=== PATIENT | male | born 1945 | race African-American/Black ===

== ENCOUNTER 2017-07-17 10:42 | Inpatient (IN) | payer MEDICARE, MEDICAID ==
[~2017-07-17] VITALS: Ht 182.9 cm; Wt 98.9 kg
[~2017-07-17 10:42] MED LIST: ASPI-1159 PO; ATOR-2 PO; IBUP-2030 PO; METO100T5 PO
[2017-07-17] MEDS ORDERED: SODIUM CHLORIDE 0.9% 1,000 ML IV ONE (10:48)
[2017-07-17 11:15] LABS: BG BASE EXCESS -0.9 mmol/L (-2.0-2.0); BG CARBOXYHEMOGLOBIN 0.1 % (0.5-1.5); BG DEOXYHEMOGLOBIN 4.7 % (0.0-5.0); BG FRACTION INSPIRED OXYGEN 21; BG HCO3 ACT 23.8 mmol/L (22.0-26.0); BG METHEMOGLOBIN 0.2 % (0.0-1.5); BG OXYGEN SATURATION 95.3 % (92.0-98.5); BG PCO2 39.7 mmHg (35.0-45.0); BG PH 7.396 (7.350-7.450); BG PO2 85.9 mmHg (75.0-100.0); BG SAMPLE SITE RIGHT RADIAL; BG TOTAL HEMOGLOBIN 9.1 g/dL (12.0-18.0); BG VENT MODE ROOM AIR
[2017-07-17 11:17] LABS: BASOPHILS % 0.5 % (0.0-2.0); EOSINOPHILS % 4.2 % (0.0-5.0); HEMATOCRIT. 24.3 % (42.0-52.0); HEMOGLOBIN. 8.1 g/dL (14.0-18.0); MEAN CORPUSCULAR HEMOGLOBIN 30.7 pg (28.0-32.0); MEAN CORPUSCULAR VOLUME 91.7 fL (80.0-94.0); MEAN PLATELET VOLUME 7.4 fl (7.4-10.4); MONOCYTES % 8.3 % (2.0-8.0); PLATELET 134 x1000/uL (130-400); RED BLOOD CELL COUNT 2.65 mill/uL (4.7-6.1); RED CELL DISTRIBUTION WIDTH 14.6 % (11.6-14.6)
[2017-07-17] MEDS ORDERED: LOSA50TA20 PO (11:25)
[2017-07-17 11:26] LABS: CLARITY URINE CLEAR (CLEAR); COLOR URINE YELLOW (YELLOW); GLUCOSE URINE NEGATIVE (NEGATIVE); KETONES URINE NEGATIVE (NEGATIVE); LEUKOCYTE ESTERASE URINE NEGATIVE (NEGATIVE); NITRITE URINE NEGATIVE (NEGATIVE); OCCULT BLOOD URINE 2+ (NEGATIVE); PH URINE 5.5 (4.5-8.0); PROTEIN URINE NEGATIVE (NEGATIVE); SPECIFIC GRAVITY URINE 1.013 (1.005-1.030); UROBILINOGEN URINE 0.2 E.U./dL (0.2-1.0)
[2017-07-17] MEDS ORDERED: CEFTRIAXONE 1 G PREMIX 50 ML IV ONE (11:30)
[2017-07-17 11:36] LABS: CARBON DIOXIDE 27 mEq/L (21-32); CHLORIDE 111 mEq/L (98-107); PARTIAL THROMBOPLASTIN TIME 24.5 sec (23.4-31.0); PROTHROMBIN TIME 10.4 sec (9.4-11.6); TROPONIN I < 0.02 ng/mL (0.00-0.04)
[2017-07-17 11:39] LABS: ETHANOL BLOOD < 10 mg/dL
[2017-07-17 11:40] LABS: *AMPHETAMINES SCREEN URINE NEGATIVE (NEGATIVE); *BARBITURATES SCREEN URINE NEGATIVE (NEGATIVE); *BENZODIAZEPINES SCREEN URINE NEGATIVE (NEGATIVE); *COCAINE SCREEN URINE NEGATIVE (NEGATIVE); CANNABINOID URINE SCREEN NEGATIVE (NEGATIVE); OPIATES URINE SCREEN NEGATIVE (NEGATIVE); PHENCYCLIDINE URINE SCREEN NEGATIVE (NEGATIVE)
[2017-07-17 11:47] LABS: METHADONE URINE SCREEN NEGATIVE (NEGATIVE)
[2017-07-17 17:09] VITALS: BP 163/65
[2017-07-17 17:30] VITALS: BP 163/65
[2017-07-17] MEDS ORDERED: GUAIFENESIN 200MG/10ML SUGAR FREE UDC PO PRN (18:45)
[2017-07-17] MEDS ORDERED: IBUPROFEN 800MG TABLET PO PRN (18:45)
[2017-07-17] MEDS ORDERED: ONDANSETRON HCL 4MG/2ML VIAL IV PRN (18:45)
[2017-07-17] MEDS ORDERED: CLONIDINE 0.1MG TABLET PO PRN (18:45)
[2017-07-17] MEDS ORDERED: DIPHENHYDRAMINE 50MG/ML VIAL IV PRN (18:45)
[2017-07-17] MEDS ORDERED: ACETAMINOPHEN 325MG TABLET PO PRN (18:45)
[2017-07-17] MEDS ORDERED: MAGNESIUM/ALUMINUM HYDROXIDE/SIMETHICONE 30ML UDC PO PRN (18:45)
[2017-07-17 20:00] VITALS: BP 148/60
[2017-07-17] MEDS: SODIUM CHLORIDE 0.9% INJ 3ML FLUSH IVF SCH (21:10)
[2017-07-17] MEDS: ATORVASTATIN CALCIUM 40MG TABLET PO SCH (21:10)
[2017-07-17] MEDS: IPRATROPIUM/ALBUTEROL 0.5-3(2.5)MG/3ML NEB HHN SCH (22:19)
[2017-07-17] MEDS: NEOMYCIN-POLYMYXIN B-HYDROCORTISONE 1% OTIC SOLN 10ML EACH EAR SCH (23:18)
[2017-07-17] MEDS: DEXT 5%/0.45% NACL 1000ML 1,000 ML IV SCH (23:19)
[2017-07-18] VITALS: BP 158/62
[2017-07-18] MEDS: IPRATROPIUM/ALBUTEROL 0.5-3(2.5)MG/3ML NEB HHN SCH ×2 (03:34→09:43)
[2017-07-18 04:00] VITALS: BP 168/67
[2017-07-18] MEDS: NEOMYCIN-POLYMYXIN B-HYDROCORTISONE 1% OTIC SOLN 10ML EACH EAR SCH ×3 (05:07→18:26)
[2017-07-18] MEDS: SODIUM CHLORIDE 0.9% INJ 3ML FLUSH IVF SCH ×3 (05:07→21:02)
[2017-07-18 07:35] VITALS: BP 155/64
[2017-07-18] MEDS: ASPIRIN 81MG EC TABLET PO SCH (08:44)
[2017-07-18] MEDS: LOSARTAN POTASSIUM 50 MG TABLET PO SCH (08:44)
[2017-07-18] MEDS: METOPROLOL TARTRATE 100MG TABLET PO SCH ×2 (08:45→21:02)
[2017-07-18] MEDS: DEXT 5%/0.45% NACL 1000ML 1,000 ML IV SCH (09:52)
[2017-07-18 12:04] VITALS: BP 146/65
[2017-07-18] MEDS ORDERED: IPRATROPIUM/ALBUTEROL 0.5-3(2.5)MG/3ML NEB HHN PRN (13:45)
[2017-07-18 16:00] VITALS: BP 148/70
[2017-07-18 20:00] VITALS: BP 156/63
[2017-07-18] MEDS: ATORVASTATIN CALCIUM 40MG TABLET PO SCH (21:01)
[2017-07-19] VITALS: BP 168/55
[2017-07-19] MEDS: NEOMYCIN-POLYMYXIN B-HYDROCORTISONE 1% OTIC SOLN 10ML EACH EAR SCH ×3 (01:20→12:29)
[2017-07-19] MEDS: DEXT 5%/0.45% NACL 1000ML 1,000 ML IV SCH ×2 (03:26→14:35)
[2017-07-19 04:00] VITALS: BP 158/64
[2017-07-19] MEDS: SODIUM CHLORIDE 0.9% INJ 3ML FLUSH IVF SCH ×2 (06:46→14:35)
[2017-07-19 08:26] VITALS: BP 168/62
[2017-07-19] MEDS: ASPIRIN 81MG EC TABLET PO SCH (08:37)
[2017-07-19] MEDS: LOSARTAN POTASSIUM 50 MG TABLET PO SCH (08:38)
[2017-07-19] MEDS: METOPROLOL TARTRATE 100MG TABLET PO SCH (08:39)
[2017-07-19 12:30] VITALS: BP 138/63
[2017-07-19 16:37] VITALS: BP 136/44
== END 2017-07-19 18:00 | disposition home health service (06) | DRG 682 ==
LOC: ER 11:09 → 5WST 12:26 → EDBEDREQ 12:31 → ENRESERV 15:17
PROVIDERS: ADMIT Internal Medicine; ATTEND Internal Medicine
DX: N17.9 Acute kidney failure, unspecified (principal); G92 Toxic encephalopathy; E46 Unspecified protein-calorie malnutrition; E87.8 Other disorders of electrolyte and fluid balance, not elsewhere classified; G90.8 Other disorders of autonomic nervous system; D64.9 Anemia, unspecified; H60.90 Unspecified otitis externa, unspecified ear; E78.00 Pure hypercholesterolemia, unspecified; E86.0 Dehydration; H54.0 Blindness, both eyes; H91.90 Unspecified hearing loss, unspecified ear; I12.9 Hypertensive chronic kidney disease with stage 1 through stage 4 chronic kidney disease, or unspecified chronic kidney disease; N18.9 Chronic kidney disease, unspecified; Z68.29 Body mass index [BMI] 29.0-29.9, adult; Z79.82 Long term (current) use of aspirin; Z79.899 Other long term (current) drug therapy
CPT/HCPCS: 36415; 36600; 51702; 70450; 71010; 80048; 80053; 80305; 81001; 82375; 82805; 82962; 83605; 83690; 83735; 83880; 84484; 85025; 85610; 85730; 87040; 87070; 87086; 93005; 94640; 96361; 96365; 99285; G0482; J0696; J3490; J7030; J7620; A4315

== ENCOUNTER 2017-08-08 10:26 | Inpatient (IN) | payer MEDICARE, MEDICAID ==
[~2017-08-08] VITALS: Ht 188 cm; Wt 98.0 kg
[~2017-08-08 10:26] MED LIST changes: +LOSA50TA20 PO
[2017-08-08] MEDS ORDERED: ASPIRIN 81MG TABLET PO ONE (10:45)
[2017-08-08] MEDS ORDERED: NITROGLYCERIN 0.4MG TABLET SL SL PRN (10:45)
[2017-08-08] MEDS ORDERED: FERR220S12 PO (11:06)
[2017-08-08] MEDS ORDERED: DOCU-150 PO (11:07)
[2017-08-08] MEDS ORDERED: PANT40TA4 PO (11:08)
[2017-08-08] MEDS ORDERED: CLOP75TA15 PO (11:08)
[2017-08-08 11:19] LABS: BASOPHILS % 0.4 % (0.0-2.0); EOSINOPHILS % 3.5 % (0.0-5.0); HEMATOCRIT. 24.6 % (42.0-52.0); HEMOGLOBIN. 8.3 g/dL (14.0-18.0); LYMPHOCYTES % 24.4 % (20.0-50.0); MEAN CORPUSCULAR HEMOGLOBIN 30.8 pg (28.0-32.0); MEAN PLATELET VOLUME 7.5 fl (7.4-10.4); NEUTROPHILS % 65.7 % (40.0-76.0); PLATELET 118 x1000/uL (130-400); RED BLOOD CELL COUNT 2.71 mill/uL (4.7-6.1); RED CELL DISTRIBUTION WIDTH 14.7 % (11.6-14.6)
[2017-08-08 11:25] LABS: PROTHROMBIN TIME 10.4 sec (9.4-11.6)
[2017-08-08 11:27] LABS: CHLORIDE 111 mEq/L (98-107)
[2017-08-08 11:34] LABS: CARBON DIOXIDE 28 mEq/L (21-32)
[2017-08-08 11:36] LABS: TROPONIN I < 0.02 ng/mL (0.00-0.04)
[2017-08-08] MEDS ORDERED: SODIUM CHLORIDE 0.9% 1,000 ML IV ONE (12:15)
[2017-08-08] MEDS ORDERED: SODIUM CHLORIDE 0.9% 1,000 ML IV SCH (12:35)
[2017-08-08] MEDS ORDERED: ONDANSETRON HCL 4MG/2ML VIAL IV PRN (16:30)
[2017-08-08] MEDS ORDERED: GUAIFENESIN 200MG/10ML SUGAR FREE UDC PO PRN (16:30)
[2017-08-08] MEDS ORDERED: HYDROCODONE/ACETAMINOPHEN 5/325MG TABLET PO PRN (16:30)
[2017-08-08] MEDS ORDERED: MAGNESIUM/ALUMINUM HYDROXIDE/SIMETHICONE 30ML UDC PO PRN (16:30)
[2017-08-08] MEDS ORDERED: MORPHINE SULFATE 4 MG/ML CPJ (NOT FOR IM USE) IV PRN (16:30)
[2017-08-08 16:51] VITALS: BP 147/67
[2017-08-08 17:00] VITALS: BP 147/67
[2017-08-08] MEDS: ENOXAPARIN 40MG/0.4ML SYR SUBCUT SCH (17:32)
[2017-08-08 20:00] VITALS: BP 159/65
[2017-08-08 23:20] LABS: CREATINE KINASE 110 IU/L (39-308); CREATINE KINASE MB FRACTION 1.2 ng/mL (0.5-3.6); TROPONIN I < 0.02 ng/mL (0.00-0.04)
[2017-08-09] VITALS (10 sets, daily range): BP systolic 114–181; BP diastolic 49–76
[2017-08-09] MEDS: CLONIDINE 0.1MG TABLET PO PRN (01:19)
[2017-08-09] MEDS: ACETAMINOPHEN 325MG TABLET PO PRN (01:22)
[2017-08-09 06:14] LABS: BASOPHILS % 0.4 % (0.0-2.0); EOSINOPHILS % 3.8 % (0.0-5.0); HEMATOCRIT. 21.9 % (42.0-52.0); HEMOGLOBIN. 7.3 g/dL (14.0-18.0); MEAN CORPUSCULAR HEMOGLOBIN 30.5 pg (28.0-32.0); MEAN CORPUSCULAR VOLUME 91.5 fL (80.0-94.0); MONOCYTES % 7.7 % (2.0-8.0); NEUTROPHILS % 57.1 % (40.0-76.0); PLATELET 108 x1000/uL (130-400); RED CELL DISTRIBUTION WIDTH 14.6 % (11.6-14.6)
[2017-08-09 07:13] LABS: CARBON DIOXIDE 28 mEq/L (21-32); CHLORIDE 110 mEq/L (98-107); HDL CHOLESTEROL 49 mg/dL (40-59); LDL CHOLESTEROL 78 mg/dL (5-100); T4 FREE 0.93 ng/dL (0.76-1.46)
[2017-08-09 07:28] LABS: CREATINE KINASE 103 IU/L (39-308)
[2017-08-09 07:29] LABS: CREATINE KINASE MB FRACTION 1.3 ng/mL (0.5-3.6); TROPONIN I < 0.02 ng/mL (0.00-0.04)
[2017-08-09] MEDS: ASPIRIN 81MG EC TABLET PO SCH (09:18)
[2017-08-09] MEDS ORDERED: CLONIDINE 0.1MG TABLET PO PRN (11:30)
[2017-08-09] MEDS ORDERED: ENOXAPARIN 40MG/0.4ML SYR SUBCUT SCH (11:30)
[2017-08-09] MEDS ORDERED: HYDROCODONE/ACETAMINOPHEN 5/325MG TABLET PO PRN (11:30)
[2017-08-09] MEDS ORDERED: ACETAMINOPHEN 325MG TABLET PO PRN (11:30)
[2017-08-09] MEDS ORDERED: DIPHENHYDRAMINE 50MG/ML VIAL IV PRN (11:30)
[2017-08-09] MEDS ORDERED: DOCUSATE SODIUM 100MG CAPSULE PO PRN (11:30)
[2017-08-09] MEDS ORDERED: MORPHINE SULFATE 2 MG/ML CPJ (NOT FOR IM USE) IV PRN (11:30)
[2017-08-09] MEDS ORDERED: ONDANSETRON HCL 4MG/2ML VIAL IV PRN (11:30)
[2017-08-09] MEDS ORDERED: GUAIFENESIN 200MG/10ML SUGAR FREE UDC PO PRN (11:30)
[2017-08-09 15:32] LABS: TOTAL IRON BINDING CAPACITY 271 ug/dL (250-450)
[2017-08-09 16:03] LABS: FOLIC ACID (FOLATE) SERUM 12.4 ng/mL (>5.38)
[2017-08-09] MEDS: PANTOPRAZOLE SODIUM 40 MG/VIAL IV SCH (16:53)
[2017-08-09] MEDS: ENOXAPARIN 40MG/0.4ML SYR SUBCUT SCH (16:54)
[2017-08-09] MEDS: SENNOSIDES/DOCUSATE SOD 8.6/50MG TABLET PO SCH (16:54)
[2017-08-09 17:22] LABS: CREATINE KINASE 116 IU/L (39-308); CREATINE KINASE MB FRACTION 1.2 ng/mL (0.5-3.6); HDL CHOLESTEROL 56 mg/dL (40-59); LDL CHOLESTEROL 86 mg/dL (5-100); T4 FREE 0.97 ng/dL (0.76-1.46); TROPONIN I < 0.02 ng/mL (0.00-0.04)
[2017-08-09 19:33] LABS: T4 FREE 0.92 ng/dL (0.76-1.46)
[2017-08-10] VITALS (9 sets, daily range): BP systolic 122–175; BP diastolic 56–72
[2017-08-10 01:37] LABS: CREATINE KINASE 107 IU/L (39-308); CREATINE KINASE MB FRACTION 0.8 ng/mL (0.5-3.6); TROPONIN I < 0.02 ng/mL (0.00-0.04)
[2017-08-10 06:48] LABS: BASOPHILS % 0.4 % (0.0-2.0); EOSINOPHILS % 3.5 % (0.0-5.0); HEMATOCRIT. 27.8 % (42.0-52.0); HEMOGLOBIN. 9.3 g/dL (14.0-18.0); LYMPHOCYTES % 25.6 % (20.0-50.0); MEAN CORPUSCULAR HEMOGLOBIN 30.1 pg (28.0-32.0); MEAN CORPUSCULAR VOLUME 89.7 fL (80.0-94.0); MONOCYTES % 6.1 % (2.0-8.0); NEUTROPHILS % 64.4 % (40.0-76.0); PLATELET 115 x1000/uL (130-400); RED CELL DISTRIBUTION WIDTH 14.6 % (11.6-14.6)
[2017-08-10 06:49] LABS: PARTIAL THROMBOPLASTIN TIME 25.7 sec (23.4-31.0); PROTHROMBIN TIME 10.6 sec (9.4-11.6)
[2017-08-10 08:11] LABS: CARBON DIOXIDE 28 mEq/L (21-32); CHLORIDE 106 mEq/L (98-107)
[2017-08-10] MEDS ORDERED: ASPIRIN 81MG EC TABLET PO SCH (09:00)
[2017-08-10] MEDS: ASPIRIN 81MG EC TABLET PO SCH (10:48)
[2017-08-10] MEDS: DOCUSATE SODIUM 100MG CAPSULE PO PRN (10:48)
[2017-08-10] MEDS: PANTOPRAZOLE SODIUM 40 MG/VIAL IV SCH ×2 (10:49→17:14)
[2017-08-10] MEDS: SENNOSIDES/DOCUSATE SOD 8.6/50MG TABLET PO SCH (10:50)
[2017-08-10] MEDS: SODIUM CHLORIDE 0.9% 1,000 ML IV SCH (16:00)
[2017-08-10] MEDS: ENOXAPARIN 40MG/0.4ML SYR SUBCUT SCH (17:10)
[2017-08-11] VITALS (7 sets, daily range): BP systolic 120–177; BP diastolic 42–76
[2017-08-11] MEDS: CLONIDINE 0.1MG TABLET PO PRN (00:18)
[2017-08-11] MEDS: SODIUM CHLORIDE 0.9% 1,000 ML IV SCH ×2 (00:18→16:36)
[2017-08-11] MEDS: SENNOSIDES/DOCUSATE SOD 8.6/50MG TABLET PO SCH (10:09)
[2017-08-11] MEDS: ASPIRIN 81MG EC TABLET PO SCH (10:09)
[2017-08-11] MEDS: PANTOPRAZOLE SODIUM 40 MG/VIAL IV SCH ×2 (10:17→17:09)
[2017-08-11] MEDS: ACETAMINOPHEN 325MG TABLET PO PRN (14:50)
[2017-08-11] MEDS ORDERED: SODIUM CHLORIDE 0.9% 10ML VIAL ONE (15:14)
[2017-08-11] MEDS ORDERED: IOHEXOL-350 100 ML BOTTLE ONE (15:14)
[2017-08-11] MEDS: ENOXAPARIN 40MG/0.4ML SYR SUBCUT SCH (17:00)
[2017-08-12] VITALS (7 sets, daily range): BP systolic 127–166; BP diastolic 55–70
[2017-08-12] MEDS: CLONIDINE 0.1MG TABLET PO PRN (06:06)
[2017-08-12] MEDS: DOCUSATE SODIUM 100MG CAPSULE PO PRN ×2 (08:46→08:49)
[2017-08-12] MEDS: ASPIRIN 81MG EC TABLET PO SCH (08:46)
[2017-08-12] MEDS: PANTOPRAZOLE SODIUM 40 MG/VIAL IV SCH ×2 (08:46→17:20)
[2017-08-12] MEDS: SODIUM CHLORIDE 0.9% 1,000 ML IV SCH (08:48)
[2017-08-12] MEDS: SENNOSIDES/DOCUSATE SOD 8.6/50MG TABLET PO SCH (09:05)
[2017-08-12] MEDS: ENOXAPARIN 40MG/0.4ML SYR SUBCUT SCH (17:21)
[2017-08-12] MEDS ORDERED: DIATR MEGLU/DIATRIZOATE SOLN 30ML PO NR (22:00)
[2017-08-13] VITALS (7 sets, daily range): BP systolic 111–170; BP diastolic 53–74
[2017-08-13] MEDS ORDERED: DIATR MEGLU/DIATRIZOATE SOLN 30ML PO NR (06:00)
[2017-08-13] MEDS: PANTOPRAZOLE SODIUM 40 MG/VIAL IV SCH ×2 (09:11→18:13)
[2017-08-13] MEDS: ASPIRIN 81MG EC TABLET PO SCH (09:12)
[2017-08-13] MEDS: SENNOSIDES/DOCUSATE SOD 8.6/50MG TABLET PO SCH (09:12)
[2017-08-13] MEDS ORDERED: SODIUM CHLORIDE 0.9% 10ML VIAL ONE (11:41)
[2017-08-13] MEDS ORDERED: IOHEXOL-300 100 ML BOTTLE ONE (11:41)
[2017-08-13 16:34] LABS: BASOPHILS % 0.4 % (0.0-2.0); EOSINOPHILS % 3.5 % (0.0-5.0); HEMATOCRIT. 26.7 % (42.0-52.0); HEMOGLOBIN. 9.2 g/dL (14.0-18.0); LYMPHOCYTES % 27.6 % (20.0-50.0); MEAN CORPUSCULAR HEMOGLOBIN 30.9 pg (28.0-32.0); MEAN CORPUSCULAR VOLUME 90.3 fL (80.0-94.0); MEAN PLATELET VOLUME 8.3 fl (7.4-10.4); MONOCYTES % 8.3 % (2.0-8.0); NEUTROPHILS % 60.2 % (40.0-76.0); PLATELET 123 x1000/uL (130-400); RED BLOOD CELL COUNT 2.96 mill/uL (4.7-6.1); RED CELL DISTRIBUTION WIDTH 14.4 % (11.6-14.6)
[2017-08-13 16:36] LABS: PROTHROMBIN TIME 10.8 sec (9.4-11.6)
[2017-08-13] MEDS: ENOXAPARIN 40MG/0.4ML SYR SUBCUT SCH (17:00)
[2017-08-13] MEDS ORDERED: SORBITOL 70% SOLN 30ML PO NR (21:15)
[2017-08-14 00:03] VITALS: BP 127/63
[2017-08-14 04:00] VITALS: BP 116/61
[2017-08-14] MEDS ORDERED: SORBITOL 70% SOLN 30ML PO NR (06:00)
[2017-08-14 07:27] VITALS: BP 144/68
[2017-08-14] MEDS: SENNOSIDES/DOCUSATE SOD 8.6/50MG TABLET PO SCH (08:38)
[2017-08-14] MEDS: ASPIRIN 81MG EC TABLET PO SCH (08:38)
[2017-08-14] MEDS: PANTOPRAZOLE SODIUM 40 MG/VIAL IV SCH (08:58)
[2017-08-14 11:20] VITALS: BP 140/57
== END 2017-08-14 13:05 | disposition home health service (06) | DRG 291 ==
LOC: ER 10:42 → 7WST 12:39 → ENRESERV 13:23
PROVIDERS: ADMIT Hospitalist; ATTEND Hospitalist
PROC: 30233N1 Transfusion of Nonautologous Red Blood Cells into Peripheral Vein, Percutaneous Approach (ICD-10-PCS; principal; 2017-08-10)
PROC: 02HV33Z Insertion of Infusion Device into Superior Vena Cava, Percutaneous Approach (ICD-10-PCS; 2017-08-11)
PROC: B5181ZA Fluoroscopy of Superior Vena Cava using Low Osmolar Contrast, Guidance (ICD-10-PCS; 2017-08-11)
DX: I13.0 Hypertensive heart and chronic kidney disease with heart failure and stage 1 through stage 4 chronic kidney disease, or unspecified chronic kidney disease (principal); I50.31 Acute diastolic (congestive) heart failure; N17.9 Acute kidney failure, unspecified; D61.818 Other pancytopenia; K92.1 Melena; E44.1 Mild protein-calorie malnutrition; N18.9 Chronic kidney disease, unspecified; E78.5 Hyperlipidemia, unspecified; H91.90 Unspecified hearing loss, unspecified ear; H91.8X3 Other specified hearing loss, bilateral; I71.4 Abdominal aortic aneurysm, without rupture; I25.2 Old myocardial infarction; Z87.11 Personal history of peptic ulcer disease; Z79.899 Other long term (current) drug therapy; Z68.27 Body mass index [BMI] 27.0-27.9, adult
CPT/HCPCS: 36415; 36569; 71010; 71275; 74177; 76937; 77001; 80053; 80061; 82550; 82553; 82607; 82728; 82746; 82962; 83036; 83540; 83550; 83880; 84439; 84443; 84484; 85025; 85379; 85610; 85730; 86850; 86870; 86900; 86920; 93005; 93306; 93970; 96360; 99285; A4216; C1725; C9113; J1650; J7030; J7050; P9016; Q9963; Q9967

== ENCOUNTER 2018-10-27 10:56 | Inpatient (IN) | payer MEDICARE, MEDICAID ==
[~2018-10-27] VITALS: Ht 182.9 cm; Wt 90.7 kg
[~2018-10-27 10:56] MED LIST changes: +FAMO20TA8 PO; +FERR325T6 PO; -IBUP-2030 PO; +LISI-186 PO; -METO100T5 PO; +METO25TA6 PO; +OLAN5TAB26 PO; +PANT40TA4 PO; +SERT25TA74 PO
[2018-10-27] MEDS ORDERED: SODIUM CHLORIDE 0.9% 1,000 ML IV ONE (11:31)
[2018-10-27 13:08] LABS: BASOPHILS % 0.2 % (0.0-2.0); EOSINOPHILS % 2.2 % (0.0-5.0); HEMATOCRIT. 28.8 % (42.0-52.0); HEMOGLOBIN. 9.2 g/dL (14.0-18.0); LYMPHOCYTES % 26.2 % (20.0-50.0); MEAN CORPUSCULAR HEMOGLOBIN 29.7 pg (28.0-32.0); MEAN CORPUSCULAR VOLUME 92.7 fL (80.0-94.0); MEAN PLATELET VOLUME 9.2 fl (7.4-10.4); MONOCYTES % 7.2 % (2.0-8.0); NEUTROPHILS % 64.2 % (40.0-76.0); PLATELET 140 x1000/uL (130-400); RED BLOOD CELL COUNT 3.11 mill/uL (4.7-6.1); RED CELL DISTRIBUTION WIDTH 15.2 % (11.6-14.6)
[2018-10-27 13:20] LABS: CHLORIDE 116 mEq/L (98-107)
[2018-10-27] MEDS ORDERED: LIDOCAINE HCL 1% 20ML VIAL (Pyxis) INJ ONE (13:39)
[2018-10-27] MEDS ORDERED: SODIUM BICARBONATE 4% (2.4MEQ) 5ML VIAL IV ONE (13:39)
[2018-10-27] MEDS ORDERED: ACETAMINOPHEN 325MG TABLET PO PRN (17:30)
[2018-10-27] MEDS ORDERED: ONDANSETRON HCL 4MG/2ML INJ IV PRN (17:30)
[2018-10-27] MEDS ORDERED: SODIUM CHLORIDE 0.45% 1,000 ML IV SCH (17:30)
[2018-10-27] MEDS ORDERED: CLONIDINE 0.1MG TABLET PO PRN (17:30)
[2018-10-27] MEDS ORDERED: LORAZEPAM 0.5MG TABLET PO PRN (21:00)
[2018-10-27] MEDS ORDERED: SERTRALINE HCL 25MG TABLET PO SCH (22:44)
[2018-10-27] MEDS ORDERED: ATORVASTATIN CALCIUM 40MG TABLET PO SCH (22:45)
[2018-10-28 01:09] LABS: CLARITY URINE CLEAR (CLEAR); COLOR URINE YELLOW (YELLOW); KETONES URINE NEGATIVE (NEGATIVE); LEUKOCYTE ESTERASE URINE NEGATIVE (NEGATIVE); NITRITE URINE NEGATIVE (NEGATIVE); OCCULT BLOOD URINE TRACE (NEGATIVE); PROTEIN URINE NEGATIVE (NEGATIVE); SPECIFIC GRAVITY URINE 1.013 (1.005-1.030); UROBILINOGEN URINE 0.2 E.U./dL (0.2-1.0)
[2018-10-28 05:13] LABS: BASOPHILS % 0.3 % (0.0-2.0); EOSINOPHILS % 3.2 % (0.0-5.0); HEMATOCRIT. 26.6 % (42.0-52.0); HEMOGLOBIN. 8.6 g/dL (14.0-18.0); LYMPHOCYTES % 28.3 % (20.0-50.0); MEAN CORPUSCULAR VOLUME 92.3 fL (80.0-94.0); MEAN PLATELET VOLUME 8.6 fl (7.4-10.4); MONOCYTES % 8.5 % (2.0-8.0); NEUTROPHILS % 59.7 % (40.0-76.0); PLATELET 122 x1000/uL (130-400); RED BLOOD CELL COUNT 2.88 mill/uL (4.7-6.1)
[2018-10-28 09:28] VITALS: BP 132/62
[2018-10-28 10:00] VITALS: BP 132/62
[2018-10-28] MEDS: METOPROLOL TARTRATE 50MG TABLET PO SCH ×2 (10:45→20:33)
[2018-10-28] MEDS: ASPIRIN 81MG TABLET PO SCH (10:45)
[2018-10-28] MEDS: SERTRALINE HCL 25MG TABLET PO SCH ×2 (10:45→22:05)
[2018-10-28 12:00] VITALS: BP 103/53
[2018-10-28 16:00] VITALS: BP 109/78
[2018-10-28] MEDS: DEXTROSE 5% WATER 1,000 ML IV SCH (18:57)
[2018-10-28 20:00] VITALS: BP 104/60
[2018-10-28] MEDS ORDERED: ATORVASTATIN CALCIUM 40MG TABLET PO SCH (21:00)
[2018-10-28] MEDS: ALPRAZOLAM 0.5 MG TABLET PO SCH ×2 (22:05→22:06)
[2018-10-29] VITALS: BP 104/54
[2018-10-29 04:00] VITALS: BP 117/58
[2018-10-29 08:00] VITALS: BP 146/129
[2018-10-29] MEDS: METOPROLOL TARTRATE 50MG TABLET PO SCH (09:24)
[2018-10-29] MEDS: ASPIRIN 81MG TABLET PO SCH (09:24)
[2018-10-29] MEDS: SERTRALINE HCL 25MG TABLET PO SCH (09:25)
[2018-10-29 11:00] VITALS: BP 146/179
[2018-10-29] MEDS: DEXTROSE 5% WATER 1,000 ML IV SCH (11:34)
[2018-10-29 14:47] VITALS: BP 104/50
== END 2018-10-29 17:40 | disposition hospice, home (50) | DRG 291 ==
LOC: ER 10:56 → 8WST 13:59 → ENRESERV 10-28 07:23
PROVIDERS: ADMIT Internal Medicine; ATTEND Internal Medicine
PROC: 02HV33Z Insertion of Infusion Device into Superior Vena Cava, Percutaneous Approach (ICD-10-PCS; principal; 2018-10-27)
PROC: B548ZZA Ultrasonography of Superior Vena Cava, Guidance (ICD-10-PCS; 2018-10-27)
DX: I13.0 Hypertensive heart and chronic kidney disease with heart failure and stage 1 through stage 4 chronic kidney disease, or unspecified chronic kidney disease (principal); N17.0 Acute kidney failure with tubular necrosis; E44.0 Moderate protein-calorie malnutrition; E87.0 Hyperosmolality and hypernatremia; D64.9 Anemia, unspecified; E86.0 Dehydration; E87.8 Other disorders of electrolyte and fluid balance, not elsewhere classified; G30.9 Alzheimer's disease, unspecified; F02.80 Dementia in other diseases classified elsewhere, unspecified severity, without behavioral disturbance, psychotic disturbance, mood disturbance, and anxiety; I25.10 Atherosclerotic heart disease of native coronary artery without angina pectoris; I50.9 Heart failure, unspecified; N18.9 Chronic kidney disease, unspecified; Z51.5 Encounter for palliative care; Z66 Do not resuscitate; Z79.82 Long term (current) use of aspirin; Z78.1 Physical restraint status; Z79.899 Other long term (current) drug therapy; I25.2 Old myocardial infarction; Z98.61 Coronary angioplasty status; Z68.27 Body mass index [BMI] 27.0-27.9, adult
CPT/HCPCS: 36415; 36569; 71045; 76937; 80048; 96365; 99285; C1725; J3490; J7030; J7070

== ENCOUNTER 2018-11-27 19:09 | Emergency (ER) | payer MEDICARE, MEDICAID ==
[~2018-11-27] VITALS: Ht 182.9 cm; Wt 120.0 kg
[2018-11-27 20:22] LABS: BASOPHILS % 0.3 % (0.0-2.0); EOSINOPHILS % 2.5 % (0.0-5.0); HEMATOCRIT. 24.7 % (42.0-52.0); LYMPHOCYTES % 21.4 % (20.0-50.0); MEAN CORPUSCULAR HEMOGLOBIN 29.1 pg (28.0-32.0); MEAN PLATELET VOLUME 7.7 fl (7.4-10.4); MONOCYTES % 7.9 % (2.0-8.0); NEUTROPHILS % 67.9 % (40.0-76.0); PLATELET 182 x1000/uL (130-400); RED BLOOD CELL COUNT 2.75 mill/uL (4.7-6.1); RED CELL DISTRIBUTION WIDTH 15.4 % (11.6-14.6)
[2018-11-27 20:29] LABS: CHLORIDE 113 mEq/L (98-107)
[2018-11-27 20:31] LABS: PROTHROMBIN TIME 10.3 sec (9.1-11.1)
[2018-11-27 20:42] LABS: CLARITY URINE CLEAR (CLEAR); COLOR URINE YELLOW (YELLOW); KETONES URINE NEGATIVE (NEGATIVE); LEUKOCYTE ESTERASE URINE 1+ (NEGATIVE); NITRITE URINE NEGATIVE (NEGATIVE); OCCULT BLOOD URINE 2+ (NEGATIVE); PROTEIN URINE NEGATIVE (NEGATIVE); SPECIFIC GRAVITY URINE 1.012 (1.005-1.030)
[2018-11-27] MEDS ORDERED: ALBUTEROL (0.083%) 2.5MG/3ML NEB HHN STA (21:33)
[2018-11-27 22:01] VITALS: BP 159/72
== END 2018-11-27 22:10 | disposition home or self-care (01) ==
LOC: ER 19:09
DX: N39.0 Urinary tract infection, site not specified (principal); R31.9 Hematuria, unspecified; H91.90 Unspecified hearing loss, unspecified ear; I11.9 Hypertensive heart disease without heart failure; I51.9 Heart disease, unspecified; Z79.899 Other long term (current) drug therapy
CPT/HCPCS: 36415; 80053; 81003; 85025; 85610; 87086; 94640; 99283; J7611; A4315

== ENCOUNTER 2019-01-03 21:02 | Emergency (ER) | payer MEDICARE, MEDICAID ==
[~2019-01-03] VITALS: Ht 188 cm; Wt 105.0 kg
[2019-01-03 23:51] LABS: BASOPHILS % 0.3 % (0.0-2.0); EOSINOPHILS % 1.2 % (0.0-5.0); HEMOGLOBIN. 9.2 g/dL (14.0-18.0); LYMPHOCYTES % 25.6 % (20.0-50.0); MEAN CORPUSCULAR HEMOGLOBIN 29.4 pg (28.0-32.0); MEAN CORPUSCULAR VOLUME 89.3 fL (80.0-94.0); MEAN PLATELET VOLUME 7.6 fl (7.4-10.4); MONOCYTES % 12.6 % (2.0-8.0); NEUTROPHILS % 60.3 % (40.0-76.0); PLATELET 191 x1000/uL (130-400); RED BLOOD CELL COUNT 3.14 mill/uL (4.7-6.1); RED CELL DISTRIBUTION WIDTH 17.2 % (11.6-14.6)
[2019-01-03 23:55] LABS: CHLORIDE 104 mEq/L (98-107)
[2019-01-04] MEDS ORDERED: SODIUM CHLORIDE 0.9% 500 ML IV ONE (00:45)
[2019-01-04 02:22] VITALS: BP 131/77
== END 2019-01-04 02:23 | disposition home or self-care (01) ==
LOC: ER 21:02
DX: R07.0 Pain in throat (principal); R78.89 Finding of other specified substances, not normally found in blood; D64.9 Anemia, unspecified; R51 Headache; E86.0 Dehydration; G30.9 Alzheimer's disease, unspecified; F02.80 Dementia in other diseases classified elsewhere, unspecified severity, without behavioral disturbance, psychotic disturbance, mood disturbance, and anxiety; I10 Essential (primary) hypertension; Z98.84 Bariatric surgery status; Z79.82 Long term (current) use of aspirin; Z79.899 Other long term (current) drug therapy
CPT/HCPCS: 36415; 80053; 85025; 87070; 87430; 96360; 99283; J7040

== ENCOUNTER 2019-01-24 12:52 | Inpatient (IN) | payer MEDICARE, MEDICAID ==
[~2019-01-24] VITALS: Ht 182.9 cm; Wt 93.0 kg
[2019-01-24] VITALS (15 sets, daily range): BP systolic 81–125; BP diastolic 54–73
[2019-01-24] MEDS ORDERED: SODIUM CHLORIDE 0.9% 1,000 ML IV ONE (13:03)
[2019-01-24 13:26] LABS: BG BASE EXCESS -8.8 mmol/L (-2.0-2.0); BG CARBOXYHEMOGLOBIN 0.5 % (0.5-1.5); BG DEOXYHEMOGLOBIN 6.8 % (0.0-5.0); BG METHEMOGLOBIN 0.3 % (0.0-1.5); BG OXYGEN SATURATION 93.1 % (92.0-98.5); BG OXYHEMOGLOBIN 92.4 % (94.0-97.0); BG PCO2 30.2 mmHg (35.0-45.0); BG PH 7.341 (7.350-7.450); BG PO2 77.7 mmHg (75.0-100.0); BG SAMPLE SITE RIGHT BRACHIAL; BG TOTAL HEMOGLOBIN 8.9 g/dL (12.0-18.0); BG VENT MODE ROOM AIR
[2019-01-24] MEDS ORDERED: NALOXONE HCL 1 MG/ML 2ML VIAL IV ONE (14:00)
[2019-01-24 14:15] LABS: HEMATOCRIT. 27.6 % (42.0-52.0); HEMOGLOBIN. 8.6 g/dL (14.0-18.0); MEAN CORPUSCULAR HEMOGLOBIN 27.5 pg (28.0-32.0); MEAN CORPUSCULAR VOLUME 88.3 fL (80.0-94.0); MEAN PLATELET VOLUME 9.2 fl (7.4-10.4); PLATELET 158 x1000/uL (130-400); RED BLOOD CELL COUNT 3.13 mill/uL (4.7-6.1); RED CELL DISTRIBUTION WIDTH 19.4 % (11.6-14.6)
[2019-01-24 14:23] LABS: INR 1.1; PARTIAL THROMBOPLASTIN TIME 27.5 sec (23.4-31.0); PROTHROMBIN TIME 11.3 sec (9.1-11.1)
[2019-01-24 14:24] LABS: CHLORIDE 124 mEq/L (98-107)
[2019-01-24 14:28] LABS: ETHANOL BLOOD < 10 mg/dL
[2019-01-24 14:36] LABS: NUCLEATED RED BLOOD CELLS 1 /100 WBC
[2019-01-24 14:37] LABS: PLATELET ESTIMATE NORMAL
[2019-01-24] MEDS ORDERED: PIPERACILLIN/TAZ 3.375G PREMIX 50 ML IV ONE (15:00)
[2019-01-24] MEDS ORDERED: CLINDAMYCIN 600 MG in DEXTROSE 5% WATER 50 ML IV ONE (15:15)
[2019-01-24] MEDS ORDERED: SODIUM CHLORIDE 0.9% 1000ML BAG (SEPSIS BOLUS) IV ONE (15:15)
[2019-01-24] MEDS ORDERED: MAGNESIUM/ALUMINUM HYDROXIDE/SIMETHICONE 30ML UDC PO PRN (15:45)
[2019-01-24] MEDS ORDERED: GUAIFENESIN 200MG/10ML SUGAR FREE UDC PO PRN (15:45)
[2019-01-24] MEDS ORDERED: IPRATROPIUM/ALBUTEROL 0.5-3(2.5)MG/3ML NEB INH PRN (15:45)
[2019-01-24] MEDS ORDERED: LEVOFLOXACIN 500MG PREMIX 100 ML IV SCH (15:45)
[2019-01-24] MEDS ORDERED: NOREPINEPHRINE 4 MG in DEXT 5% WATER 246 ML IV NR (15:45)
[2019-01-24] MEDS ORDERED: CLONIDINE 0.1MG TABLET PO PRN (15:45)
[2019-01-24] MEDS ORDERED: ONDANSETRON HCL 4MG/2ML INJ IV PRN (15:45)
[2019-01-24] MEDS ORDERED: NITROGLYCERIN 0.4MG TABLET SL SL PRN (15:45)
[2019-01-24] MEDS ORDERED: DOCUSATE SODIUM 100MG CAPSULE PO PRN (15:45)
[2019-01-24 16:33] LABS: CLARITY URINE CLOUDY (CLEAR); COLOR URINE YELLOW (YELLOW); KETONES URINE TRACE (NEGATIVE); LEUKOCYTE ESTERASE URINE 2+ (NEGATIVE); NITRITE URINE NEGATIVE (NEGATIVE); OCCULT BLOOD URINE 1+ (NEGATIVE); PROTEIN URINE 1+ (NEGATIVE); SPECIFIC GRAVITY URINE 1.016 (1.005-1.030)
[2019-01-24 16:42] LABS: T4 FREE 1.24 ng/dL (0.76-1.46)
[2019-01-24 16:48] LABS: *AMPHETAMINES SCREEN URINE NEGATIVE (NEGATIVE); *BARBITURATES SCREEN URINE NEGATIVE (NEGATIVE)
[2019-01-24 16:49] LABS: *BENZODIAZEPINES SCREEN URINE NEGATIVE (NEGATIVE); *COCAINE SCREEN URINE NEGATIVE (NEGATIVE); CANNABINOID URINE SCREEN NEGATIVE (NEGATIVE); METHADONE URINE SCREEN NEGATIVE (NEGATIVE); OPIATES URINE SCREEN PRESUMTIVE POSITIVE (NEGATIVE); PHENCYCLIDINE URINE SCREEN NEGATIVE (NEGATIVE)
[2019-01-24 16:55] LABS: FOLIC ACID (FOLATE) SERUM 13.5 ng/mL (>5.38)
[2019-01-24] MEDS: DEXT 5%/LACTATED RINGERS 1,000 ML IV SCH (19:37)
[2019-01-24] MEDS ORDERED: CEFEPIME 1,000 MG in DEXTROSE 5% WATER 50 ML IV SCH (20:00)
[2019-01-24] MEDS: ENOXAPARIN 30MG/0.3ML SYR SUBCUT SCH (20:00)
[2019-01-24] MEDS ORDERED: INFLUENZA VIRUS VACCINE(AFLURIA) 0.5ML SYR IM ONE (21:00)
[2019-01-24] MEDS: METRONIDAZOLE 500 MG PREMIX 100 ML IV SCH (21:29)
[2019-01-24] MEDS: ASCORBIC ACID 500 MG TABLET PO SCH (21:30)
[2019-01-24] MEDS: FAMOTIDINE 20MG TABLET PO SCH (21:30)
[2019-01-25] VITALS (89 sets, daily range): BP systolic 80–137; BP diastolic 40–98
[2019-01-25] MEDS: IPRATROPIUM/ALBUTEROL 0.5-3(2.5)MG/3ML NEB HHN SCH ×4 (01:37→20:32)
[2019-01-25] MEDS ORDERED: CEFTRIAXONE 1 G PREMIX 50 ML IV SCH (09:00)
[2019-01-25] MEDS ORDERED: ASPIRIN 325MG EC TABLET PO SCH (09:00)
[2019-01-25] MEDS ORDERED: ZINC SULFATE 220 MG ( 50 ) CAPSULE PO SCH (09:00)
[2019-01-25] MEDS: ASCORBIC ACID 500 MG TABLET PO SCH ×2 (09:37→20:51)
[2019-01-25] MEDS: METRONIDAZOLE 500 MG PREMIX 100 ML IV SCH ×2 (09:37→20:51)
[2019-01-25] MEDS: ASPIRIN 325MG TABLET PO SCH (09:38)
[2019-01-25] MEDS: DEXT 5%/LACTATED RINGERS 1,000 ML IV SCH (09:38)
[2019-01-25] MEDS ORDERED: LIDOCAINE HCL 1% 20ML VIAL (Pyxis) INJ ONE (10:03)
[2019-01-25 10:18] LABS: BASOPHILS % 0.2 % (0.0-2.0); EOSINOPHILS % 0.4 % (0.0-5.0); HEMATOCRIT. 23.2 % (42.0-52.0); HEMOGLOBIN. 7.3 g/dL (14.0-18.0); LYMPHOCYTES % 8.5 % (20.0-50.0); MEAN CORPUSCULAR HEMOGLOBIN 27.5 pg (28.0-32.0); MEAN PLATELET VOLUME 8.7 fl (7.4-10.4); MONOCYTES % 10.4 % (2.0-8.0); NEUTROPHILS % 80.5 % (40.0-76.0); PLATELET 134 x1000/uL (130-400); RED BLOOD CELL COUNT 2.67 mill/uL (4.7-6.1); RED CELL DISTRIBUTION WIDTH 19.5 % (11.6-14.6)
[2019-01-25 10:22] LABS: CHLORIDE 130 mEq/L (98-107)
[2019-01-25 10:28] LABS: PHOSPHORUS 5.3 mg/dL (2.5-4.9)
[2019-01-25] MEDS: DEXT 5%/0.45% NACL 1000ML 1,000 ML IV SCH (11:18)
[2019-01-25] MEDS ORDERED: VANCOMYCIN 2,000 MG in DEXT 5% WATER 500 ML IV NR (13:00)
[2019-01-25] MEDS: NOREPINEPHRINE 4 MG in DEXT 5% WATER 246 ML IV PRN (14:00)
[2019-01-25] MEDS: ENOXAPARIN 30MG/0.3ML SYR SUBCUT SCH (19:45)
[2019-01-25] MEDS ORDERED: CEFEPIME 1,000 MG in DEXTROSE 5% WATER 50 ML IV SCH (20:00)
[2019-01-25] MEDS: FAMOTIDINE 20MG TABLET PO SCH (20:51)
[2019-01-26] VITALS (97 sets, daily range): BP systolic 80–175; BP diastolic 49–130
[2019-01-26] MEDS: IPRATROPIUM/ALBUTEROL 0.5-3(2.5)MG/3ML NEB HHN SCH ×4 (01:40→20:21)
[2019-01-26] MEDS: DEXT 5%/0.45% NACL 1000ML 1,000 ML IV SCH ×2 (03:11→06:37)
[2019-01-26] MEDS: NOREPINEPHRINE 4 MG in DEXT 5% WATER 246 ML IV PRN ×2 (04:26→17:44)
[2019-01-26 05:52] LABS: BASOPHILS % 0.2 % (0.0-2.0); EOSINOPHILS % 0.4 % (0.0-5.0); HEMATOCRIT. 25.8 % (42.0-52.0); LYMPHOCYTES % 8.5 % (20.0-50.0); MEAN CORPUSCULAR HEMOGLOBIN 27.3 pg (28.0-32.0); MEAN CORPUSCULAR VOLUME 88.2 fL (80.0-94.0); MEAN PLATELET VOLUME 8.7 fl (7.4-10.4); MONOCYTES % 12.7 % (2.0-8.0); NEUTROPHILS % 78.2 % (40.0-76.0); PLATELET 137 x1000/uL (130-400); RED BLOOD CELL COUNT 2.93 mill/uL (4.7-6.1); RED CELL DISTRIBUTION WIDTH 19.7 % (11.6-14.6)
[2019-01-26 06:13] LABS: PHOSPHORUS 5.8 mg/dL (2.5-4.9)
[2019-01-26] MEDS: ASPIRIN 325MG TABLET PO SCH (09:00)
[2019-01-26] MEDS: METRONIDAZOLE 500 MG PREMIX 100 ML IV SCH (09:51)
[2019-01-26] MEDS: DEXT 5%/0.2% NACL 1,000 ML IV SCH ×2 (12:03→19:46)
[2019-01-26] MEDS: ACETAMINOPHEN 325MG TABLET PO PRN (12:50)
[2019-01-26] MEDS: ASCORBIC ACID 500 MG TABLET PO SCH ×2 (12:51→20:26)
[2019-01-26] MEDS: MIDODRINE HCL 5MG TABLET PO SCH ×2 (13:51→17:34)
[2019-01-26] MEDS: MEROPENEM 500 MG in SODIUM CHLORIDE 0.9% 50 ML IV SCH (17:34)
[2019-01-26] MEDS: ENOXAPARIN 30MG/0.3ML SYR SUBCUT SCH (19:47)
[2019-01-26] MEDS: FAMOTIDINE 20MG TABLET PO SCH (20:26)
[2019-01-27] VITALS (96 sets, daily range): BP systolic 54–126; BP diastolic 23–84
[2019-01-27] MEDS: DEXT 5%/0.2% NACL 1,000 ML IV SCH ×3 (02:28→23:23)
[2019-01-27] MEDS: IPRATROPIUM/ALBUTEROL 0.5-3(2.5)MG/3ML NEB HHN SCH ×5 (04:16→20:28)
[2019-01-27] MEDS: MEROPENEM 500 MG in SODIUM CHLORIDE 0.9% 50 ML IV SCH ×2 (04:25→17:20)
[2019-01-27 05:43] LABS: BASOPHILS % 0.1 % (0.0-2.0); EOSINOPHILS % 0.6 % (0.0-5.0); HEMATOCRIT. 24.2 % (42.0-52.0); HEMOGLOBIN. 7.5 g/dL (14.0-18.0); LYMPHOCYTES % 7.8 % (20.0-50.0); MEAN CORPUSCULAR HEMOGLOBIN 27.5 pg (28.0-32.0); MEAN CORPUSCULAR VOLUME 88.7 fL (80.0-94.0); MONOCYTES % 9.9 % (2.0-8.0); NEUTROPHILS % 81.6 % (40.0-76.0); PLATELET 144 x1000/uL (130-400); RED BLOOD CELL COUNT 2.73 mill/uL (4.7-6.1); RED CELL DISTRIBUTION WIDTH 19.8 % (11.6-14.6)
[2019-01-27 05:55] LABS: CHLORIDE 126 mEq/L (98-107)
[2019-01-27] MEDS: NOREPINEPHRINE 4 MG in DEXT 5% WATER 246 ML IV PRN ×2 (06:31→17:21)
[2019-01-27] MEDS: MIDODRINE HCL 5MG TABLET PO SCH ×3 (10:18→17:20)
[2019-01-27] MEDS: ASCORBIC ACID 500 MG TABLET PO SCH ×2 (10:18→21:12)
[2019-01-27] MEDS: ASPIRIN 325MG TABLET PO SCH (10:18)
[2019-01-27] MEDS ORDERED: VANCOMYCIN 500 MG PREMIX 100 ML IV SCH (12:00)
[2019-01-27] MEDS: ACETYLCYSTEINE 100MG/ML 10% VIAL 4ML INH SCH (14:09)
[2019-01-27] MEDS: ENOXAPARIN 30MG/0.3ML SYR SUBCUT SCH (20:00)
[2019-01-27] MEDS: FAMOTIDINE 20MG TABLET PO SCH (21:12)
[2019-01-27] MEDS: NOREPINEPHRINE 16 MG in DEXT 5% WATER 234 ML IV PRN (23:24)
[2019-01-28] VITALS (100 sets, daily range): BP systolic 79–137; BP diastolic 50–89
[2019-01-28] MEDS: ACETYLCYSTEINE 100MG/ML 10% VIAL 4ML INH SCH ×2 (00:22→08:41)
[2019-01-28] MEDS: IPRATROPIUM/ALBUTEROL 0.5-3(2.5)MG/3ML NEB HHN SCH ×5 (00:23→20:21)
[2019-01-28] MEDS: MEROPENEM 500 MG in SODIUM CHLORIDE 0.9% 50 ML IV SCH ×2 (04:31→17:24)
[2019-01-28 06:37] LABS: PHOSPHORUS 5.4 mg/dL (2.5-4.9)
[2019-01-28 06:55] LABS: BASOPHILS % 0.1 % (0.0-2.0); EOSINOPHILS % 1.1 % (0.0-5.0); LYMPHOCYTES % 9.2 % (20.0-50.0); MEAN CORPUSCULAR HEMOGLOBIN 27.3 pg (28.0-32.0); MEAN CORPUSCULAR VOLUME 89.6 fL (80.0-94.0); MEAN PLATELET VOLUME 9.7 fl (7.4-10.4); MONOCYTES % 6.5 % (2.0-8.0); NEUTROPHILS % 83.1 % (40.0-76.0); PLATELET 142 x1000/uL (130-400); RED BLOOD CELL COUNT 2.52 mill/uL (4.7-6.1); RED CELL DISTRIBUTION WIDTH 20.1 % (11.6-14.6)
[2019-01-28 07:07] LABS: HEMATOCRIT. 22.5 % (42.0-52.0); HEMOGLOBIN. 6.9 g/dL (14.0-18.0)
[2019-01-28] MEDS: MIDODRINE HCL 5MG TABLET PO SCH ×3 (08:55→17:27)
[2019-01-28] MEDS: ASPIRIN 325MG TABLET PO SCH (08:55)
[2019-01-28] MEDS: ASCORBIC ACID 500 MG TABLET PO SCH ×2 (08:55→20:51)
[2019-01-28] MEDS: DEXT 5%/0.2% NACL 1,000 ML IV SCH ×2 (08:55→17:28)
[2019-01-28] MEDS: SERTRALINE HCL 25MG TABLET PO SCH (14:54)
[2019-01-28 16:36] LABS: BASOPHILS % 0.2 % (0.0-2.0); EOSINOPHILS % 1.3 % (0.0-5.0); LYMPHOCYTES % 13.6 % (20.0-50.0); MEAN CORPUSCULAR HEMOGLOBIN 26.6 pg (28.0-32.0); MEAN CORPUSCULAR VOLUME 87.2 fL (80.0-94.0); MONOCYTES % 8.3 % (2.0-8.0); NEUTROPHILS % 76.6 % (40.0-76.0); PLATELET 137 x1000/uL (130-400); RED BLOOD CELL COUNT 2.49 mill/uL (4.7-6.1)
[2019-01-28 16:47] LABS: HEMATOCRIT. 21.7 % (42.0-52.0); HEMOGLOBIN. 6.6 g/dL (14.0-18.0)
[2019-01-28] MEDS: OLANZAPINE 5MG TABLET PO SCH (20:51)
[2019-01-28] MEDS: FAMOTIDINE 20MG TABLET PO SCH (20:51)
[2019-01-28] MEDS: ACETAMINOPHEN 325MG TABLET PO PRN (21:45)
[2019-01-28] MEDS ORDERED: VANCOMYCIN 1,000 MG in DEXT 5% WATER 250 ML IV SCH (23:00)
[2019-01-29] VITALS (96 sets, daily range): BP systolic 75–121; BP diastolic 35–84
[2019-01-29] MEDS: IPRATROPIUM/ALBUTEROL 0.5-3(2.5)MG/3ML NEB HHN SCH ×3 (00:23→20:34)
[2019-01-29] MEDS: ACETYLCYSTEINE 100MG/ML 10% VIAL 4ML INH SCH (00:24)
[2019-01-29] MEDS: NOREPINEPHRINE 16 MG in DEXT 5% WATER 234 ML IV PRN (00:52)
[2019-01-29 02:06] LABS: HEMATOCRIT 24.6 % (42.0-52.0); HEMOGLOBIN 7.8 g/dL (14.0-18.0)
[2019-01-29] MEDS: DEXT 5%/0.2% NACL 1,000 ML IV SCH ×3 (02:32→15:17)
[2019-01-29] MEDS: ACETAMINOPHEN 325MG TABLET PO PRN ×3 (03:53→21:49)
[2019-01-29] MEDS: MEROPENEM 500 MG in SODIUM CHLORIDE 0.9% 50 ML IV SCH ×2 (05:05→17:14)
[2019-01-29 06:35] LABS: BASOPHILS % 0.2 % (0.0-2.0); EOSINOPHILS % 1.1 % (0.0-5.0); HEMATOCRIT. 23.6 % (42.0-52.0); HEMOGLOBIN. 7.6 g/dL (14.0-18.0); LYMPHOCYTES % 10.3 % (20.0-50.0); MEAN CORPUSCULAR VOLUME 86.8 fL (80.0-94.0); MEAN PLATELET VOLUME 8.8 fl (7.4-10.4); MONOCYTES % 6.6 % (2.0-8.0); NEUTROPHILS % 81.8 % (40.0-76.0); PLATELET 122 x1000/uL (130-400); RED BLOOD CELL COUNT 2.72 mill/uL (4.7-6.1); RED CELL DISTRIBUTION WIDTH 17.9 % (11.6-14.6)
[2019-01-29 06:42] LABS: CHLORIDE 117 mEq/L (98-107)
[2019-01-29 06:55] LABS: PHOSPHORUS 5.3 mg/dL (2.5-4.9)
[2019-01-29] MEDS: ASPIRIN 325MG TABLET PO SCH (09:48)
[2019-01-29] MEDS: MIDODRINE HCL 5MG TABLET PO SCH ×4 (09:48→17:14)
[2019-01-29] MEDS: SERTRALINE HCL 25MG TABLET PO SCH (09:48)
[2019-01-29] MEDS: ASCORBIC ACID 500 MG TABLET PO SCH ×2 (09:49→21:25)
[2019-01-29] MEDS: FAMOTIDINE 20MG TABLET PO SCH (21:26)
[2019-01-29] MEDS: OLANZAPINE 5MG TABLET PO SCH (21:26)
[2019-01-30] VITALS (84 sets, daily range): BP systolic 75–131; BP diastolic 32–87
[2019-01-30] MEDS: IPRATROPIUM/ALBUTEROL 0.5-3(2.5)MG/3ML NEB HHN SCH ×6 (00:07→20:40)
[2019-01-30] MEDS: ACETYLCYSTEINE 100MG/ML 10% VIAL 4ML INH SCH ×3 (00:11→16:52)
[2019-01-30] MEDS: DEXT 5%/0.2% NACL 1,000 ML IV SCH (00:20)
[2019-01-30] MEDS: ACETAMINOPHEN 325MG TABLET PO PRN ×2 (01:49→05:52)
[2019-01-30] MEDS: MEROPENEM 500 MG in SODIUM CHLORIDE 0.9% 50 ML IV SCH ×2 (04:29→16:55)
[2019-01-30 05:52] LABS: BASOPHILS % 0.1 % (0.0-2.0); EOSINOPHILS % 1.2 % (0.0-5.0); HEMATOCRIT. 24.5 % (42.0-52.0); HEMOGLOBIN. 7.9 g/dL (14.0-18.0); LYMPHOCYTES % 10.3 % (20.0-50.0); MEAN CORPUSCULAR HEMOGLOBIN 28.3 pg (28.0-32.0); MEAN CORPUSCULAR VOLUME 87.5 fL (80.0-94.0); MEAN PLATELET VOLUME 8.9 fl (7.4-10.4); MONOCYTES % 6.8 % (2.0-8.0); NEUTROPHILS % 81.6 % (40.0-76.0); PLATELET 117 x1000/uL (130-400); RED CELL DISTRIBUTION WIDTH 17.7 % (11.6-14.6)
[2019-01-30 05:56] LABS: CHLORIDE 114 mEq/L (98-107)
[2019-01-30] MEDS: ASCORBIC ACID 500 MG TABLET PO SCH ×2 (09:25→21:04)
[2019-01-30] MEDS: MIDODRINE HCL 5MG TABLET PO SCH ×3 (09:25→16:56)
[2019-01-30] MEDS: NOREPINEPHRINE 16 MG in DEXT 5% WATER 234 ML IV PRN ×2 (09:25→21:58)
[2019-01-30] MEDS: SERTRALINE HCL 25MG TABLET PO SCH (09:26)
[2019-01-30] MEDS: TRAMADOL 50MG TABLET PO PRN (09:28)
[2019-01-30] MEDS: DEXT 5%/0.45% NACL 1000ML 1,000 ML IV SCH ×2 (09:34→22:50)
[2019-01-30] MEDS: ASPIRIN 325MG TABLET PO SCH (09:48)
[2019-01-30] MEDS: VANCOMYCIN 1 G PREMIX 200 ML IV SCH (11:55)
[2019-01-30] MEDS: FAMOTIDINE 20MG TABLET PO SCH (21:02)
[2019-01-30] MEDS: HYDROCODONE/ACETAMINOPHEN 5/325MG TABLET PO PRN (21:03)
[2019-01-30] MEDS: OLANZAPINE 5MG TABLET PO SCH (21:04)
[2019-01-31] VITALS (95 sets, daily range): BP systolic 77–143; BP diastolic 41–82
[2019-01-31] MEDS: ACETYLCYSTEINE 100MG/ML 10% VIAL 4ML INH SCH ×4 (00:21→23:55)
[2019-01-31] MEDS: IPRATROPIUM/ALBUTEROL 0.5-3(2.5)MG/3ML NEB HHN SCH ×7 (00:22→23:55)
[2019-01-31 05:22] LABS: BASOPHILS % 0.2 % (0.0-2.0); EOSINOPHILS % 1.8 % (0.0-5.0); HEMATOCRIT. 24.4 % (42.0-52.0); HEMOGLOBIN. 7.7 g/dL (14.0-18.0); LYMPHOCYTES % 10.2 % (20.0-50.0); MEAN CORPUSCULAR HEMOGLOBIN 27.8 pg (28.0-32.0); MEAN PLATELET VOLUME 8.7 fl (7.4-10.4); MONOCYTES % 7.6 % (2.0-8.0); NEUTROPHILS % 80.2 % (40.0-76.0); PLATELET 123 x1000/uL (130-400); RED BLOOD CELL COUNT 2.77 mill/uL (4.7-6.1); RED CELL DISTRIBUTION WIDTH 18.1 % (11.6-14.6)
[2019-01-31] MEDS: MEROPENEM 500 MG in SODIUM CHLORIDE 0.9% 50 ML IV SCH ×2 (05:25→16:59)
[2019-01-31 05:40] LABS: PHOSPHORUS 7.5 mg/dL (2.5-4.9)
[2019-01-31] MEDS: HYDROCODONE/ACETAMINOPHEN 5/325MG TABLET PO PRN ×2 (06:08→18:06)
[2019-01-31] MEDS: ASCORBIC ACID 500 MG TABLET PO SCH ×2 (10:09→20:35)
[2019-01-31] MEDS: MIDODRINE HCL 5MG TABLET PO SCH ×3 (10:09→16:59)
[2019-01-31] MEDS: ASPIRIN 325MG TABLET PO SCH (10:09)
[2019-01-31] MEDS: ACETAMINOPHEN 325MG TABLET PO PRN (10:11)
[2019-01-31] MEDS: TRAMADOL 50MG TABLET PO PRN (11:10)
[2019-01-31] MEDS: SERTRALINE HCL 25MG TABLET PO SCH (11:25)
[2019-01-31] MEDS: DEXT 5%/0.45% NACL 1000ML 1,000 ML IV SCH (12:51)
[2019-01-31] MEDS: FAMOTIDINE 20MG TABLET PO SCH (20:35)
[2019-01-31] MEDS: OLANZAPINE 5MG TABLET PO SCH (20:35)
[2019-01-31] MEDS: NOREPINEPHRINE 16 MG in DEXT 5% WATER 234 ML IV PRN (20:39)
[2019-01-31] MEDS: VANCOMYCIN 1 G PREMIX 200 ML IV SCH (23:18)
[2019-02-01] VITALS (101 sets, daily range): BP systolic 81–121; BP diastolic 28–77
[2019-02-01] MEDS: IPRATROPIUM/ALBUTEROL 0.5-3(2.5)MG/3ML NEB HHN SCH ×2 (04:13→21:20)
[2019-02-01] MEDS: MEROPENEM 500 MG in SODIUM CHLORIDE 0.9% 50 ML IV SCH ×2 (04:24→16:59)
[2019-02-01] MEDS: DEXT 5%/0.45% NACL 1000ML 1,000 ML IV SCH ×2 (04:25→20:49)
[2019-02-01 05:33] LABS: BASOPHILS % 0.2 % (0.0-2.0); EOSINOPHILS % 1.3 % (0.0-5.0); LYMPHOCYTES % 10.3 % (20.0-50.0); MEAN CORPUSCULAR HEMOGLOBIN 27.4 pg (28.0-32.0); MEAN CORPUSCULAR VOLUME 86.7 fL (80.0-94.0); MEAN PLATELET VOLUME 9.1 fl (7.4-10.4); MONOCYTES % 7.4 % (2.0-8.0); NEUTROPHILS % 80.8 % (40.0-76.0); PLATELET 146 x1000/uL (130-400); RED BLOOD CELL COUNT 2.54 mill/uL (4.7-6.1); RED CELL DISTRIBUTION WIDTH 18.3 % (11.6-14.6)
[2019-02-01 05:45] LABS: PHOSPHORUS 5.6 mg/dL (2.5-4.9)
[2019-02-01] MEDS: SERTRALINE HCL 25MG TABLET PO SCH (08:03)
[2019-02-01] MEDS: MIDODRINE HCL 5MG TABLET PO SCH ×2 (08:03→17:00)
[2019-02-01] MEDS: TRAMADOL 50MG TABLET PO PRN (08:04)
[2019-02-01] MEDS: ACETAMINOPHEN 325MG TABLET PO PRN (08:04)
[2019-02-01] MEDS: ASPIRIN 325MG TABLET PO SCH (08:04)
[2019-02-01] MEDS: ASCORBIC ACID 500 MG TABLET PO SCH ×2 (08:04→20:48)
[2019-02-01] MEDS: MORPHINE SULFATE 4 MG/ML CPJ (NOT FOR IM USE) IV PRN ×2 (09:33→16:59)
[2019-02-01] MEDS: FAMOTIDINE 20MG TABLET PO SCH (20:48)
[2019-02-01] MEDS: OLANZAPINE 5MG TABLET PO SCH (20:48)
[2019-02-02] VITALS (91 sets, daily range): BP systolic 70–140; BP diastolic 46–88
[2019-02-02] MEDS: IPRATROPIUM/ALBUTEROL 0.5-3(2.5)MG/3ML NEB HHN SCH ×6 (00:22→20:38)
[2019-02-02] MEDS: MEROPENEM 500 MG in SODIUM CHLORIDE 0.9% 50 ML IV SCH (05:31)
[2019-02-02 05:37] LABS: BASOPHILS % 0.1 % (0.0-2.0); HEMATOCRIT. 24.5 % (42.0-52.0); HEMOGLOBIN. 7.8 g/dL (14.0-18.0); LYMPHOCYTES % 10.3 % (20.0-50.0); MEAN CORPUSCULAR HEMOGLOBIN 28.3 pg (28.0-32.0); MEAN CORPUSCULAR VOLUME 88.1 fL (80.0-94.0); MONOCYTES % 7.2 % (2.0-8.0); NEUTROPHILS % 81.4 % (40.0-76.0); PLATELET 145 x1000/uL (130-400); RED BLOOD CELL COUNT 2.78 mill/uL (4.7-6.1)
[2019-02-02] MEDS: ASPIRIN 325MG TABLET PO SCH (09:35)
[2019-02-02] MEDS: MIDODRINE HCL 5MG TABLET PO SCH ×3 (09:35→17:20)
[2019-02-02] MEDS: SERTRALINE HCL 25MG TABLET PO SCH (09:35)
[2019-02-02] MEDS: LORAZEPAM 2MG/ML CPJ IV PRN ×2 (09:35→18:09)
[2019-02-02] MEDS: ASCORBIC ACID 500 MG TABLET PO SCH ×2 (09:35→20:54)
[2019-02-02] MEDS: DEXT 5%/0.2% NACL 1,000 ML IV SCH ×2 (09:36→22:13)
[2019-02-02] MEDS: VANCOMYCIN 1 G PREMIX 200 ML IV SCH (13:25)
[2019-02-02] MEDS: MEROPENEM 1000MG in NORMAL SALINE 100ML IV SCH (19:53)
[2019-02-02] MEDS: RISPERIDONE 0.25MG TABLET PO SCH (20:54)
[2019-02-02] MEDS: FAMOTIDINE 20MG TABLET PO SCH (20:54)
[2019-02-03] VITALS (62 sets, daily range): BP systolic 84–131; BP diastolic 33–69
[2019-02-03] MEDS: IPRATROPIUM/ALBUTEROL 0.5-3(2.5)MG/3ML NEB HHN SCH ×4 (00:13→11:39)
[2019-02-03] MEDS: MORPHINE SULFATE 4 MG/ML CPJ (NOT FOR IM USE) IV PRN (00:48)
[2019-02-03] MEDS: LORAZEPAM 2MG/ML CPJ IV PRN ×2 (04:22→10:17)
[2019-02-03] MEDS: MEROPENEM 1000MG in NORMAL SALINE 100ML IV SCH ×2 (05:10→17:29)
[2019-02-03 05:46] LABS: BASOPHILS % 0.3 % (0.0-2.0); EOSINOPHILS % 0.7 % (0.0-5.0); HEMOGLOBIN. 7.7 g/dL (14.0-18.0); LYMPHOCYTES % 11.4 % (20.0-50.0); MEAN CORPUSCULAR VOLUME 87.5 fL (80.0-94.0); MEAN PLATELET VOLUME 8.8 fl (7.4-10.4); MONOCYTES % 6.8 % (2.0-8.0); NEUTROPHILS % 80.8 % (40.0-76.0); PLATELET 178 x1000/uL (130-400); RED BLOOD CELL COUNT 2.74 mill/uL (4.7-6.1); RED CELL DISTRIBUTION WIDTH 17.2 % (11.6-14.6)
[2019-02-03 05:48] LABS: CHLORIDE 107 mEq/L (98-107)
[2019-02-03 05:55] LABS: PHOSPHORUS 5.3 mg/dL (2.5-4.9)
[2019-02-03] MEDS: MIDODRINE HCL 5MG TABLET PO SCH ×3 (09:00→17:29)
[2019-02-03] MEDS: ASCORBIC ACID 500 MG TABLET PO SCH ×2 (09:00→20:47)
[2019-02-03] MEDS: RISPERIDONE 0.25MG TABLET PO SCH ×2 (09:00→20:47)
[2019-02-03] MEDS: ASPIRIN 325MG TABLET PO SCH (09:00)
[2019-02-03] MEDS: SERTRALINE HCL 25MG TABLET PO SCH (09:00)
[2019-02-03] MEDS: DEXT 5%/0.2% NACL 1,000 ML IV SCH ×2 (11:37→23:19)
[2019-02-03 20:40] LABS: CLARITY URINE CLEAR (CLEAR); COLOR URINE YELLOW (YELLOW); KETONES URINE NEGATIVE (NEGATIVE); LEUKOCYTE ESTERASE URINE NEGATIVE (NEGATIVE); NITRITE URINE NEGATIVE (NEGATIVE); OCCULT BLOOD URINE 1+ (NEGATIVE); PROTEIN URINE 1+ (NEGATIVE); SPECIFIC GRAVITY URINE 1.013 (1.005-1.030); UROBILINOGEN URINE 0.2 E.U./dL (0.2-1.0)
[2019-02-03] MEDS: FAMOTIDINE 20MG TABLET PO SCH (20:47)
[2019-02-03] MEDS: HYDROCODONE/ACETAMINOPHEN 5/325MG TABLET PO PRN (20:48)
[2019-02-03] MEDS: VANCOMYCIN 1 G PREMIX 200 ML IV SCH (23:19)
[2019-02-04] VITALS (97 sets, daily range): BP systolic 67–155; BP diastolic 39–112
[2019-02-04] MEDS: NOREPINEPHRINE 16 MG in DEXT 5% WATER 234 ML IV PRN (02:20)
[2019-02-04] MEDS: MORPHINE SULFATE 4 MG/ML CPJ (NOT FOR IM USE) IV PRN ×3 (02:32→16:22)
[2019-02-04] MEDS: MEROPENEM 1000MG in NORMAL SALINE 100ML IV SCH ×2 (05:32→17:27)
[2019-02-04 05:57] LABS: CHLORIDE 106 mEq/L (98-107)
[2019-02-04 06:01] LABS: BASOPHILS % 0.3 % (0.0-2.0); HEMATOCRIT. 22.4 % (42.0-52.0); HEMOGLOBIN. 7.2 g/dL (14.0-18.0); LYMPHOCYTES % 11.3 % (20.0-50.0); MEAN CORPUSCULAR HEMOGLOBIN 28.3 pg (28.0-32.0); MEAN CORPUSCULAR VOLUME 87.5 fL (80.0-94.0); MEAN PLATELET VOLUME 8.5 fl (7.4-10.4); MONOCYTES % 7.4 % (2.0-8.0); PLATELET 187 x1000/uL (130-400); RED BLOOD CELL COUNT 2.55 mill/uL (4.7-6.1); RED CELL DISTRIBUTION WIDTH 17.7 % (11.6-14.6)
[2019-02-04 06:05] LABS: PHOSPHORUS 6.6 mg/dL (2.5-4.9)
[2019-02-04 06:19] LABS: PROTHROMBIN TIME 10.3 sec (9.1-11.1)
[2019-02-04] MEDS: SERTRALINE HCL 25MG TABLET PO SCH (08:19)
[2019-02-04] MEDS: ASCORBIC ACID 500 MG TABLET PO SCH ×2 (08:19→21:24)
[2019-02-04] MEDS: ASPIRIN 325MG TABLET PO SCH (08:19)
[2019-02-04] MEDS: MIDODRINE HCL 5MG TABLET PO SCH ×3 (09:00→16:26)
[2019-02-04] MEDS: RISPERIDONE 0.25MG TABLET PO SCH ×2 (09:00→21:25)
[2019-02-04] MEDS ORDERED: MIDAZOLAM HCL 5 MG/5 ML VIAL ONE (10:09)
[2019-02-04] MEDS ORDERED: SIMETHICONE 40 MG/0.6 ML 30ML ONE (10:09)
[2019-02-04] MEDS ORDERED: FENTANYL CITRATE/PF 50MCG/ML 2ML VIAL ONE (10:10)
[2019-02-04] MEDS ORDERED: MIDAZOLAM HCL 5 MG/5 ML VIAL IV PRN (11:07)
[2019-02-04] MEDS: IPRATROPIUM/ALBUTEROL 0.5-3(2.5)MG/3ML NEB HHN PRN ×3 (11:43→21:21)
[2019-02-04] MEDS: LORAZEPAM 2MG/ML CPJ IV PRN (12:01)
[2019-02-04] MEDS: DEXT 5%/0.2% NACL 1,000 ML IV SCH (16:00)
[2019-02-04] MEDS: FAMOTIDINE 20MG TABLET PO SCH (21:24)
[2019-02-05] VITALS (100 sets, daily range): BP systolic 73–135; BP diastolic 38–88
[2019-02-05] MEDS: IPRATROPIUM/ALBUTEROL 0.5-3(2.5)MG/3ML NEB HHN PRN (00:41)
[2019-02-05] MEDS: VANCOMYCIN 1 G PREMIX 200 ML IV SCH (04:26)
[2019-02-05] MEDS: DEXT 5%/0.2% NACL 1,000 ML IV SCH (04:26)
[2019-02-05] MEDS: MEROPENEM 1000MG in NORMAL SALINE 100ML IV SCH ×2 (06:14→18:10)
[2019-02-05] MEDS: ASPIRIN 325MG TABLET PO SCH (08:07)
[2019-02-05] MEDS: SERTRALINE HCL 25MG TABLET PO SCH (08:07)
[2019-02-05] MEDS: RISPERIDONE 0.25MG TABLET PO SCH ×2 (08:07→20:07)
[2019-02-05] MEDS: ASCORBIC ACID 500 MG TABLET PO SCH ×2 (08:07→20:07)
[2019-02-05] MEDS: ACETAMINOPHEN 325MG TABLET PO PRN (08:07)
[2019-02-05] MEDS: MIDODRINE HCL 5MG TABLET PO SCH ×3 (08:08→18:10)
[2019-02-05] MEDS ORDERED: FUROSEMIDE 20MG/2ML VIAL IVP SCH (08:30)
[2019-02-05] MEDS ORDERED: ALBUMIN HUMAN 25GM/100ML (25%) IV SCH (10:00)
[2019-02-05 10:09] LABS: BASOPHILS % 0.4 % (0.0-2.0); LYMPHOCYTES % 9.6 % (20.0-50.0); MEAN CORPUSCULAR HEMOGLOBIN 27.9 pg (28.0-32.0); MEAN CORPUSCULAR VOLUME 86.7 fL (80.0-94.0); MEAN PLATELET VOLUME 7.6 fl (7.4-10.4); MONOCYTES % 8.5 % (2.0-8.0); NEUTROPHILS % 80.5 % (40.0-76.0); PLATELET 196 x1000/uL (130-400); RED BLOOD CELL COUNT 2.14 mill/uL (4.7-6.1); RED CELL DISTRIBUTION WIDTH 17.5 % (11.6-14.6)
[2019-02-05 10:16] LABS: HEMATOCRIT. 18.6 % (42.0-52.0)
[2019-02-05 10:28] LABS: CHLORIDE 106 mEq/L (98-107)
[2019-02-05 10:32] LABS: PHOSPHORUS 5.3 mg/dL (2.5-4.9)
[2019-02-05] MEDS: MORPHINE SULFATE 4 MG/ML CPJ (NOT FOR IM USE) IV PRN (11:11)
[2019-02-05] MEDS: DEXT 5%/0.45% NACL 1000ML 1,000 ML IV SCH (12:00)
[2019-02-05] MEDS: NOREPINEPHRINE 16 MG in DEXT 5% WATER 234 ML IV PRN (12:21)
[2019-02-05] MEDS ORDERED: SODIUM CHLORIDE 0.9% 10ML VIAL ONE (15:40)
[2019-02-05] MEDS: FAMOTIDINE 20MG TABLET PO SCH (20:06)
[2019-02-05 20:07] LABS: CLARITY URINE CLOUDY (CLEAR); COLOR URINE YELLOW (YELLOW); KETONES URINE NEGATIVE (NEGATIVE); LEUKOCYTE ESTERASE URINE TRACE (NEGATIVE); NITRITE URINE NEGATIVE (NEGATIVE); OCCULT BLOOD URINE 2+ (NEGATIVE); PROTEIN URINE 1+ (NEGATIVE); SPECIFIC GRAVITY URINE 1.011 (1.005-1.030); UROBILINOGEN URINE 0.2 E.U./dL (0.2-1.0)
[2019-02-06] VITALS (93 sets, daily range): BP systolic 83–142; BP diastolic 42–101
[2019-02-06] MEDS: LORAZEPAM 2MG/ML CPJ IV PRN ×2 (04:28→22:05)
[2019-02-06] MEDS: MEROPENEM 1000MG in NORMAL SALINE 100ML IV SCH ×2 (05:34→17:31)
[2019-02-06 05:50] LABS: BASOPHILS % 0.3 % (0.0-2.0); EOSINOPHILS % 1.4 % (0.0-5.0); HEMATOCRIT. 24.9 % (42.0-52.0); HEMOGLOBIN. 8.1 g/dL (14.0-18.0); LYMPHOCYTES % 9.4 % (20.0-50.0); MEAN CORPUSCULAR HEMOGLOBIN 27.8 pg (28.0-32.0); MEAN CORPUSCULAR VOLUME 85.1 fL (80.0-94.0); MEAN PLATELET VOLUME 8.1 fl (7.4-10.4); NEUTROPHILS % 81.9 % (40.0-76.0); PLATELET 204 x1000/uL (130-400); RED BLOOD CELL COUNT 2.92 mill/uL (4.7-6.1)
[2019-02-06 05:53] LABS: CHLORIDE 106 mEq/L (98-107)
[2019-02-06 06:01] LABS: PHOSPHORUS 5.1 mg/dL (2.5-4.9)
[2019-02-06] MEDS: DEXT 5%/0.45% NACL 1000ML 1,000 ML IV SCH (07:15)
[2019-02-06] MEDS: MIDODRINE HCL 5MG TABLET PO SCH ×2 (14:05→17:32)
[2019-02-06] MEDS: RISPERIDONE 0.25MG TABLET PO SCH ×2 (14:05→21:51)
[2019-02-06] MEDS: ASPIRIN 325MG TABLET PO SCH (14:05)
[2019-02-06] MEDS: ASCORBIC ACID 500 MG TABLET PO SCH ×2 (14:06→21:51)
[2019-02-06] MEDS: SERTRALINE HCL 25MG TABLET PO SCH (14:06)
[2019-02-06] MEDS: DEXT 5%/0.2% NACL 1,000 ML IV SCH (14:46)
[2019-02-06] MEDS: VANCOMYCIN 1 G PREMIX 200 ML IV SCH (14:53)
[2019-02-06] MEDS: FAMOTIDINE 20MG TABLET PO SCH (21:50)
[2019-02-06] MEDS: TRAMADOL 50MG TABLET PO PRN (23:44)
[2019-02-07] VITALS (42 sets, daily range): BP systolic 76–136; BP diastolic 39–80
[2019-02-07] MEDS: DEXT 5%/0.2% NACL 1,000 ML IV SCH ×2 (03:01→17:08)
[2019-02-07] MEDS: MEROPENEM 1000MG in NORMAL SALINE 100ML IV SCH ×2 (05:46→16:59)
[2019-02-07 06:01] LABS: BASOPHILS % 0.4 % (0.0-2.0); EOSINOPHILS % 1.2 % (0.0-5.0); HEMOGLOBIN. 7.7 g/dL (14.0-18.0); LYMPHOCYTES % 8.5 % (20.0-50.0); MEAN CORPUSCULAR HEMOGLOBIN 28.4 pg (28.0-32.0); MEAN CORPUSCULAR VOLUME 85.5 fL (80.0-94.0); MEAN PLATELET VOLUME 7.9 fl (7.4-10.4); MONOCYTES % 7.5 % (2.0-8.0); NEUTROPHILS % 82.4 % (40.0-76.0); PLATELET 203 x1000/uL (130-400); RED BLOOD CELL COUNT 2.69 mill/uL (4.7-6.1); RED CELL DISTRIBUTION WIDTH 18.2 % (11.6-14.6)
[2019-02-07 06:16] LABS: CHLORIDE 107 mEq/L (98-107)
[2019-02-07] MEDS: RISPERIDONE 0.25MG TABLET PO SCH ×2 (10:16→20:29)
[2019-02-07] MEDS: SERTRALINE HCL 25MG TABLET PO SCH (10:16)
[2019-02-07] MEDS: MIDODRINE HCL 5MG TABLET PO SCH ×3 (10:16→17:03)
[2019-02-07] MEDS: ASPIRIN 325MG TABLET PO SCH (10:17)
[2019-02-07] MEDS: TRAMADOL 50MG TABLET PO PRN (10:17)
[2019-02-07] MEDS: ASCORBIC ACID 500 MG TABLET PO SCH ×2 (10:17→20:29)
[2019-02-07] MEDS: ACETAMINOPHEN 325MG TABLET PO PRN ×2 (10:18→20:29)
[2019-02-07] MEDS: VANCOMYCIN 1 G PREMIX 200 ML IV SCH (17:53)
[2019-02-07] MEDS: FAMOTIDINE 20MG TABLET PO SCH (20:29)
[2019-02-08] VITALS: BP 85/47
[2019-02-08] MEDS: HALOPERIDOL LACTATE 5MG/ML VIAL IM PRN ×2 (01:31→08:14)
[2019-02-08] MEDS: TRAMADOL 50MG TABLET PO PRN (03:06)
[2019-02-08 04:00] VITALS: BP 114/65
[2019-02-08] MEDS: MEROPENEM 1000MG in NORMAL SALINE 100ML IV SCH ×2 (05:13→17:57)
[2019-02-08 06:41] LABS: BASOPHILS % 0.4 % (0.0-2.0); EOSINOPHILS % 1.3 % (0.0-5.0); HEMATOCRIT. 23.4 % (42.0-52.0); HEMOGLOBIN. 7.7 g/dL (14.0-18.0); LYMPHOCYTES % 11.2 % (20.0-50.0); MEAN CORPUSCULAR VOLUME 84.7 fL (80.0-94.0); MEAN PLATELET VOLUME 7.8 fl (7.4-10.4); NEUTROPHILS % 78.1 % (40.0-76.0); PLATELET 223 x1000/uL (130-400); RED BLOOD CELL COUNT 2.76 mill/uL (4.7-6.1); RED CELL DISTRIBUTION WIDTH 18.1 % (11.6-14.6)
[2019-02-08 07:08] LABS: CHLORIDE 107 mEq/L (98-107)
[2019-02-08 08:22] VITALS: BP 103/60
[2019-02-08] MEDS: ASPIRIN 325MG TABLET PO SCH (09:32)
[2019-02-08] MEDS: MIDODRINE HCL 5MG TABLET PO SCH ×3 (09:33→17:58)
[2019-02-08] MEDS: SERTRALINE HCL 25MG TABLET PO SCH (09:37)
[2019-02-08] MEDS: RISPERIDONE 0.25MG TABLET PO SCH ×2 (09:37→20:44)
[2019-02-08] MEDS: ASCORBIC ACID 500 MG TABLET PO SCH ×2 (09:37→20:42)
[2019-02-08 12:00] VITALS: BP_SYST 139; BP_SYST 99; BP_DIAS 57; BP_DIAS 64
[2019-02-08] MEDS: DEXT 5%/0.2% NACL 1,000 ML IV SCH (13:49)
[2019-02-08 16:04] VITALS: BP 99/57
[2019-02-08 17:05] LABS: CLARITY URINE CLOUDY (CLEAR); COLOR URINE YELLOW (YELLOW); KETONES URINE NEGATIVE (NEGATIVE); LEUKOCYTE ESTERASE URINE 1+ (NEGATIVE); NITRITE URINE NEGATIVE (NEGATIVE); OCCULT BLOOD URINE 2+ (NEGATIVE); PROTEIN URINE 1+ (NEGATIVE); SPECIFIC GRAVITY URINE 1.012 (1.005-1.030); UROBILINOGEN URINE 0.2 E.U./dL (0.2-1.0)
[2019-02-08 20:00] VITALS: BP 132/65
[2019-02-08] MEDS: ACETAMINOPHEN 325MG TABLET PO PRN (20:42)
[2019-02-08] MEDS: FAMOTIDINE 20MG TABLET PO SCH (20:43)
[2019-02-09] VITALS: BP 96/58
[2019-02-09] MEDS: HALOPERIDOL LACTATE 5MG/ML VIAL IM PRN ×2 (00:01→13:25)
[2019-02-09 04:30] VITALS: BP 117/67
[2019-02-09] MEDS: TRAMADOL 50MG TABLET PO PRN (05:03)
[2019-02-09] MEDS: IPRATROPIUM/ALBUTEROL 0.5-3(2.5)MG/3ML NEB HHN PRN (07:19)
[2019-02-09 08:00] VITALS: BP 138/62
[2019-02-09] MEDS: MIDODRINE HCL 5MG TABLET PO SCH ×3 (09:38→17:52)
[2019-02-09] MEDS: ASPIRIN 325MG TABLET PO SCH (09:38)
[2019-02-09] MEDS: RISPERIDONE 0.25MG TABLET PO SCH ×2 (09:39→20:55)
[2019-02-09] MEDS: SERTRALINE HCL 25MG TABLET PO SCH (09:39)
[2019-02-09] MEDS: DEXT 5%/0.2% NACL 1,000 ML IV SCH (09:39)
[2019-02-09] MEDS: ASCORBIC ACID 500 MG TABLET PO SCH ×2 (09:39→20:55)
[2019-02-09 12:00] VITALS: BP 100/60
[2019-02-09 16:00] VITALS: BP 152/59
[2019-02-09 20:00] VITALS: BP 133/67
[2019-02-09] MEDS: FAMOTIDINE 20MG TABLET PO SCH (20:55)
[2019-02-10] VITALS (7 sets, daily range): BP systolic 100–129; BP diastolic 56–68
[2019-02-10] MEDS: DEXT 5%/0.2% NACL 1,000 ML IV SCH (01:45)
[2019-02-10 06:18] LABS: BASOPHILS % 0.3 % (0.0-2.0); HEMATOCRIT. 23.4 % (42.0-52.0); HEMOGLOBIN. 7.7 g/dL (14.0-18.0); MEAN CORPUSCULAR HEMOGLOBIN 27.9 pg (28.0-32.0); MEAN CORPUSCULAR VOLUME 84.3 fL (80.0-94.0); MEAN PLATELET VOLUME 7.8 fl (7.4-10.4); MONOCYTES % 8.5 % (2.0-8.0); NEUTROPHILS % 78.2 % (40.0-76.0); PLATELET 231 x1000/uL (130-400); RED BLOOD CELL COUNT 2.78 mill/uL (4.7-6.1); RED CELL DISTRIBUTION WIDTH 18.9 % (11.6-14.6)
[2019-02-10 06:25] LABS: CHLORIDE 107 mEq/L (98-107)
[2019-02-10] MEDS: HALOPERIDOL LACTATE 5MG/ML VIAL IM PRN ×2 (06:29→16:14)
[2019-02-10 06:30] LABS: PHOSPHORUS 3.7 mg/dL (2.5-4.9)
[2019-02-10] MEDS: ASCORBIC ACID 500 MG TABLET PO SCH ×2 (08:51→21:58)
[2019-02-10] MEDS: RISPERIDONE 0.25MG TABLET PO SCH ×2 (08:51→21:58)
[2019-02-10] MEDS: MIDODRINE HCL 5MG TABLET PO SCH ×3 (08:51→16:14)
[2019-02-10] MEDS: ASPIRIN 325MG TABLET PO SCH (08:51)
[2019-02-10] MEDS: SERTRALINE HCL 25MG TABLET PO SCH (08:51)
[2019-02-10] MEDS ORDERED: DEXTROSE 5% WATER 1,000 ML IV SCH (12:45)
[2019-02-10] MEDS: FAMOTIDINE 20MG TABLET PO SCH (21:58)
[2019-02-10] MEDS: ACETAMINOPHEN 325MG TABLET PO PRN (21:59)
[2019-02-11] VITALS (7 sets, daily range): BP systolic 102–117; BP diastolic 51–64
[2019-02-11] MEDS: HALOPERIDOL LACTATE 5MG/ML VIAL IM PRN (03:08)
[2019-02-11 06:27] LABS: BASOPHILS % 0.3 % (0.0-2.0); EOSINOPHILS % 1.3 % (0.0-5.0); HEMATOCRIT. 24.7 % (42.0-52.0); HEMOGLOBIN. 8.1 g/dL (14.0-18.0); LYMPHOCYTES % 9.3 % (20.0-50.0); MEAN CORPUSCULAR HEMOGLOBIN 27.8 pg (28.0-32.0); MEAN CORPUSCULAR VOLUME 84.6 fL (80.0-94.0); MONOCYTES % 7.7 % (2.0-8.0); NEUTROPHILS % 81.4 % (40.0-76.0); PLATELET 226 x1000/uL (130-400); RED BLOOD CELL COUNT 2.91 mill/uL (4.7-6.1); RED CELL DISTRIBUTION WIDTH 18.8 % (11.6-14.6)
[2019-02-11 06:29] LABS: CHLORIDE 109 mEq/L (98-107)
[2019-02-11] MEDS: ASCORBIC ACID 500 MG TABLET PO SCH ×2 (08:54→20:57)
[2019-02-11] MEDS: ASPIRIN 325MG TABLET PO SCH (08:54)
[2019-02-11] MEDS: SERTRALINE HCL 25MG TABLET PO SCH (08:54)
[2019-02-11] MEDS: MIDODRINE HCL 5MG TABLET PO SCH ×3 (08:55→20:56)
[2019-02-11] MEDS: RISPERIDONE 0.25MG TABLET PO SCH ×2 (08:55→20:57)
[2019-02-11] MEDS: ACETAMINOPHEN 325MG TABLET PO PRN (12:50)
[2019-02-11] MEDS: FAMOTIDINE 20MG TABLET PO SCH (20:57)
[2019-02-12] VITALS: BP 99/51
[2019-02-12 04:00] VITALS: BP 101/53
[2019-02-12 07:13] LABS: BASOPHILS % 0.4 % (0.0-2.0); EOSINOPHILS % 0.5 % (0.0-5.0); HEMATOCRIT. 22.8 % (42.0-52.0); HEMOGLOBIN. 7.3 g/dL (14.0-18.0); LYMPHOCYTES % 9.9 % (20.0-50.0); MEAN CORPUSCULAR HEMOGLOBIN 27.1 pg (28.0-32.0); MEAN CORPUSCULAR VOLUME 84.2 fL (80.0-94.0); MEAN PLATELET VOLUME 8.3 fl (7.4-10.4); MONOCYTES % 7.2 % (2.0-8.0); PLATELET 267 x1000/uL (130-400); RED BLOOD CELL COUNT 2.71 mill/uL (4.7-6.1)
[2019-02-12 07:26] LABS: CHLORIDE 113 mEq/L (98-107)
[2019-02-12 07:37] LABS: PHOSPHORUS 4.7 mg/dL (2.5-4.9)
[2019-02-12 08:10] VITALS: BP 102/63
[2019-02-12] MEDS: ASPIRIN 325MG TABLET PO SCH (08:14)
[2019-02-12] MEDS: SERTRALINE HCL 25MG TABLET PO SCH (08:15)
[2019-02-12] MEDS: RISPERIDONE 0.25MG TABLET PO SCH ×2 (08:18→21:16)
[2019-02-12] MEDS: ASCORBIC ACID 500 MG TABLET PO SCH ×2 (08:18→21:16)
[2019-02-12] MEDS: ACETAMINOPHEN 325MG TABLET PO PRN ×2 (08:19→16:13)
[2019-02-12] MEDS: MIDODRINE HCL 5MG TABLET PO SCH ×3 (08:19→16:13)
[2019-02-12] MEDS: DEXTROSE 5% WATER 1,000 ML IV SCH ×2 (09:00→21:15)
[2019-02-12 12:30] VITALS: BP 111/63
[2019-02-12 16:12] VITALS: BP 115/72
[2019-02-12 20:00] VITALS: BP 107/59
[2019-02-12] MEDS: FAMOTIDINE 20MG TABLET PO SCH (21:16)
[2019-02-13] VITALS (9 sets, daily range): BP systolic 91–127; BP diastolic 53–74
[2019-02-13] MEDS: DEXTROSE 5% WATER 1,000 ML IV SCH ×2 (06:19→18:09)
[2019-02-13 07:06] LABS: BASOPHILS % 0.5 % (0.0-2.0); EOSINOPHILS % 1.3 % (0.0-5.0); MEAN CORPUSCULAR HEMOGLOBIN 27.8 pg (28.0-32.0); MEAN CORPUSCULAR VOLUME 84.4 fL (80.0-94.0); MEAN PLATELET VOLUME 8.2 fl (7.4-10.4); MONOCYTES % 7.4 % (2.0-8.0); NEUTROPHILS % 74.8 % (40.0-76.0); PLATELET 257 x1000/uL (130-400); RED BLOOD CELL COUNT 2.43 mill/uL (4.7-6.1); RED CELL DISTRIBUTION WIDTH 19.1 % (11.6-14.6)
[2019-02-13 07:11] LABS: CHLORIDE 111 mEq/L (98-107)
[2019-02-13 08:03] LABS: HEMATOCRIT. 20.5 % (42.0-52.0); HEMOGLOBIN. 6.8 g/dL (14.0-18.0)
[2019-02-13] MEDS: ASPIRIN 325MG TABLET PO SCH (09:00)
[2019-02-13] MEDS: MIDODRINE HCL 5MG TABLET PO SCH ×3 (09:55→18:09)
[2019-02-13] MEDS: RISPERIDONE 0.25MG TABLET PO SCH ×2 (09:55→21:26)
[2019-02-13] MEDS: SERTRALINE HCL 25MG TABLET PO SCH (09:55)
[2019-02-13] MEDS: ASCORBIC ACID 500 MG TABLET PO SCH ×2 (09:56→21:26)
[2019-02-13] MEDS: ACETAMINOPHEN 325MG TABLET PO PRN (13:35)
[2019-02-13 18:02] LABS: HEMATOCRIT 23.8 % (42.0-52.0); HEMOGLOBIN 7.6 g/dL (14.0-18.0)
[2019-02-13] MEDS: FAMOTIDINE 20MG TABLET PO SCH (21:26)
[2019-02-14] VITALS (9 sets, daily range): BP systolic 106–123; BP diastolic 62–98
[2019-02-14] MEDS: DEXTROSE 5% WATER 1,000 ML IV SCH (04:37)
[2019-02-14 05:56] LABS: BASOPHILS % 0.3 % (0.0-2.0); EOSINOPHILS % 1.6 % (0.0-5.0); LYMPHOCYTES % 14.5 % (20.0-50.0); MEAN CORPUSCULAR HEMOGLOBIN 27.6 pg (28.0-32.0); MEAN CORPUSCULAR VOLUME 84.6 fL (80.0-94.0); MEAN PLATELET VOLUME 8.2 fl (7.4-10.4); MONOCYTES % 6.5 % (2.0-8.0); NEUTROPHILS % 77.1 % (40.0-76.0); PLATELET 247 x1000/uL (130-400); RED CELL DISTRIBUTION WIDTH 18.1 % (11.6-14.6)
[2019-02-14 06:40] LABS: HEMOGLOBIN. 6.6 g/dL (14.0-18.0)
[2019-02-14 06:41] LABS: HEMATOCRIT. 20.3 % (42.0-52.0)
[2019-02-14 06:58] LABS: CHLORIDE 110 mEq/L (98-107)
[2019-02-14 07:13] LABS: PHOSPHORUS 3.9 mg/dL (2.5-4.9)
[2019-02-14] MEDS: MIDODRINE HCL 5MG TABLET PO SCH ×3 (08:19→16:26)
[2019-02-14] MEDS: ASPIRIN 325MG TABLET PO SCH (08:19)
[2019-02-14] MEDS: ASCORBIC ACID 500 MG TABLET PO SCH ×2 (08:19→21:15)
[2019-02-14] MEDS: RISPERIDONE 0.25MG TABLET PO SCH ×2 (08:19→21:14)
[2019-02-14] MEDS: SERTRALINE HCL 25MG TABLET PO SCH (08:19)
[2019-02-14] MEDS: ACETAMINOPHEN 325MG TABLET PO PRN (08:20)
[2019-02-14 19:28] LABS: HEMATOCRIT 24.5 % (42.0-52.0); HEMOGLOBIN 7.9 g/dL (14.0-18.0)
[2019-02-14] MEDS: FAMOTIDINE 20MG TABLET PO SCH (21:14)
[2019-02-15] VITALS (9 sets, daily range): BP systolic 95–117; BP diastolic 53–74
[2019-02-15 06:42] LABS: BASOPHILS % 0.2 % (0.0-2.0); LYMPHOCYTES % 11.7 % (20.0-50.0); MEAN CORPUSCULAR HEMOGLOBIN 26.3 pg (28.0-32.0); MEAN CORPUSCULAR VOLUME 80.2 fL (80.0-94.0); MEAN PLATELET VOLUME 8.3 fl (7.4-10.4); MONOCYTES % 6.4 % (2.0-8.0); NEUTROPHILS % 79.7 % (40.0-76.0); PLATELET 233 x1000/uL (130-400); RED BLOOD CELL COUNT 2.62 mill/uL (4.7-6.1); RED CELL DISTRIBUTION WIDTH 23.3 % (11.6-14.6)
[2019-02-15 06:43] LABS: CHLORIDE 112 mEq/L (98-107)
[2019-02-15 06:59] LABS: PHOSPHORUS 4.5 mg/dL (2.5-4.9)
[2019-02-15 07:14] LABS: HEMOGLOBIN. 6.9 g/dL (14.0-18.0)
[2019-02-15] MEDS: ASPIRIN 325MG TABLET PO SCH (09:00)
[2019-02-15] MEDS: RISPERIDONE 0.25MG TABLET PO SCH ×2 (09:43→21:39)
[2019-02-15] MEDS: MIDODRINE HCL 5MG TABLET PO SCH ×3 (09:43→16:45)
[2019-02-15] MEDS: SERTRALINE HCL 25MG TABLET PO SCH (09:43)
[2019-02-15] MEDS: ASCORBIC ACID 500 MG TABLET PO SCH ×2 (09:43→21:39)
[2019-02-15] MEDS: ACETAMINOPHEN 325MG TABLET PO PRN (09:46)
[2019-02-15 09:59] LABS: PLATELET ESTIMATE NORMAL
[2019-02-15] MEDS: HALOPERIDOL LACTATE 5MG/ML VIAL IM PRN (14:59)
[2019-02-15 19:48] LABS: HEMATOCRIT 24.1 % (42.0-52.0); HEMOGLOBIN 7.9 g/dL (14.0-18.0)
[2019-02-15] MEDS: FAMOTIDINE 20MG TABLET PO SCH (21:39)
[2019-02-16] VITALS: BP 101/70
[2019-02-16 04:00] VITALS: BP 105/64
[2019-02-16 07:20] LABS: HEMOGLOBIN. 7.5 g/dL (14.0-18.0); MEAN CORPUSCULAR HEMOGLOBIN 26.8 pg (28.0-32.0); MEAN CORPUSCULAR VOLUME 82.1 fL (80.0-94.0); MEAN PLATELET VOLUME 8.4 fl (7.4-10.4); PLATELET 219 x1000/uL (130-400); RED CELL DISTRIBUTION WIDTH 21.5 % (11.6-14.6)
[2019-02-16 08:00] VITALS: BP 102/56
[2019-02-16 09:02] LABS: CHLORIDE 116 mEq/L (98-107)
[2019-02-16 09:15] LABS: PHOSPHORUS 4.7 mg/dL (2.5-4.9)
[2019-02-16] MEDS: ASCORBIC ACID 500 MG TABLET PO SCH ×2 (09:50→21:46)
[2019-02-16] MEDS: SERTRALINE HCL 25MG TABLET PO SCH (09:50)
[2019-02-16] MEDS: RISPERIDONE 0.25MG TABLET PO SCH ×2 (09:51→21:46)
[2019-02-16] MEDS: ASPIRIN 325MG TABLET PO SCH (09:51)
[2019-02-16] MEDS: MIDODRINE HCL 5MG TABLET PO SCH ×3 (09:52→18:26)
[2019-02-16] MEDS ORDERED: DEXTROSE 5% WATER 1,000 ML IV ONE (10:15)
[2019-02-16 12:00] VITALS: BP 114/68
[2019-02-16 12:22] LABS: NUCLEATED RED BLOOD CELLS 1 /100 WBC; PLATELET ESTIMATE NORMAL
[2019-02-16] MEDS: ACETAMINOPHEN 325MG TABLET PO PRN (15:38)
[2019-02-16] MEDS: HALOPERIDOL LACTATE 5MG/ML VIAL IM PRN (15:59)
[2019-02-16 16:00] VITALS: BP 103/62
[2019-02-16 20:00] VITALS: BP 114/64
[2019-02-16] MEDS: FAMOTIDINE 20MG TABLET PO SCH (21:47)
[2019-02-17] VITALS (11 sets, daily range): BP systolic 91–125; BP diastolic 50–74
[2019-02-17 06:13] LABS: MEAN CORPUSCULAR HEMOGLOBIN 27.1 pg (28.0-32.0); MEAN CORPUSCULAR VOLUME 82.2 fL (80.0-94.0); MEAN PLATELET VOLUME 8.3 fl (7.4-10.4); PLATELET 218 x1000/uL (130-400); RED BLOOD CELL COUNT 2.32 mill/uL (4.7-6.1); RED CELL DISTRIBUTION WIDTH 21.3 % (11.6-14.6)
[2019-02-17 06:33] LABS: CHLORIDE 116 mEq/L (98-107)
[2019-02-17 07:46] LABS: HEMATOCRIT. 19.1 % (42.0-52.0); HEMOGLOBIN. 6.3 g/dL (14.0-18.0)
[2019-02-17] MEDS: MIDODRINE HCL 5MG TABLET PO SCH ×3 (09:33→17:15)
[2019-02-17] MEDS: RISPERIDONE 0.25MG TABLET PO SCH ×2 (09:33→21:07)
[2019-02-17] MEDS: ASCORBIC ACID 500 MG TABLET PO SCH ×2 (09:34→21:07)
[2019-02-17] MEDS: ASPIRIN 325MG TABLET PO SCH (09:34)
[2019-02-17] MEDS: SERTRALINE HCL 25MG TABLET PO SCH (09:34)
[2019-02-17 09:55] LABS: NUCLEATED RED BLOOD CELLS 4 /100 WBC; PLATELET ESTIMATE NORMAL
[2019-02-17 10:53] LABS: HEMATOCRIT 19.1 % (42.0-52.0); HEMOGLOBIN 6.1 g/dL (14.0-18.0)
[2019-02-17] MEDS: DEXTROSE 5% WATER 1,000 ML IV SCH ×2 (14:26→23:15)
[2019-02-17] MEDS: FAMOTIDINE 20MG TABLET PO SCH (21:07)
[2019-02-17 21:50] LABS: HEMATOCRIT 20.5 % (42.0-52.0); HEMOGLOBIN 6.7 g/dL (14.0-18.0)
[2019-02-17 22:01] LABS: INR 1.1; PROTHROMBIN TIME 10.8 sec (9.6-11.0)
[2019-02-17] MEDS: ACETAMINOPHEN 325MG TABLET PO PRN (23:10)
[2019-02-18] VITALS (10 sets, daily range): BP systolic 96–112; BP diastolic 51–72
[2019-02-18 07:05] LABS: BASOPHILS % 0.5 % (0.0-2.0); EOSINOPHILS % 1.7 % (0.0-5.0); HEMATOCRIT. 21.8 % (42.0-52.0); HEMOGLOBIN. 7.3 g/dL (14.0-18.0); LYMPHOCYTES % 10.9 % (20.0-50.0); MEAN CORPUSCULAR HEMOGLOBIN 28.2 pg (28.0-32.0); MEAN CORPUSCULAR VOLUME 84.5 fL (80.0-94.0); MEAN PLATELET VOLUME 8.6 fl (7.4-10.4); MONOCYTES % 6.6 % (2.0-8.0); NEUTROPHILS % 80.3 % (40.0-76.0); PLATELET 178 x1000/uL (130-400); RED BLOOD CELL COUNT 2.58 mill/uL (4.7-6.1); RED CELL DISTRIBUTION WIDTH 19.2 % (11.6-14.6)
[2019-02-18 07:38] LABS: CHLORIDE 118 mEq/L (98-107)
[2019-02-18 07:44] LABS: PHOSPHORUS 4.3 mg/dL (2.5-4.9)
[2019-02-18] MEDS: MIDODRINE HCL 5MG TABLET PO SCH ×3 (08:14→18:20)
[2019-02-18] MEDS: RISPERIDONE 0.25MG TABLET PO SCH ×2 (08:14→20:21)
[2019-02-18] MEDS: ASCORBIC ACID 500 MG TABLET PO SCH ×2 (08:14→20:21)
[2019-02-18] MEDS: ASPIRIN 325MG TABLET PO SCH (08:14)
[2019-02-18] MEDS: SERTRALINE HCL 25MG TABLET PO SCH (08:14)
[2019-02-18] MEDS: HALOPERIDOL LACTATE 5MG/ML VIAL IM PRN (08:14)
[2019-02-18] MEDS: DEXTROSE 5% WATER 1,000 ML IV SCH ×2 (11:05→20:21)
[2019-02-18] MEDS: FAMOTIDINE 20MG TABLET PO SCH (20:21)
[2019-02-19] VITALS (10 sets, daily range): BP systolic 89–123; BP diastolic 56–76
[2019-02-19] MEDS: DEXTROSE 5% WATER 1,000 ML IV SCH ×3 (02:45→17:03)
[2019-02-19] MEDS: HALOPERIDOL LACTATE 5MG/ML VIAL IM PRN ×3 (02:45→20:12)
[2019-02-19 08:23] LABS: MEAN CORPUSCULAR VOLUME 85.8 fL (80.0-94.0); MEAN PLATELET VOLUME 8.8 fl (7.4-10.4); PLATELET 172 x1000/uL (130-400); RED BLOOD CELL COUNT 2.31 mill/uL (4.7-6.1); RED CELL DISTRIBUTION WIDTH 19.6 % (11.6-14.6)
[2019-02-19 08:31] LABS: HEMOGLOBIN. 6.5 g/dL (14.0-18.0)
[2019-02-19 08:32] LABS: HEMATOCRIT. 19.9 % (42.0-52.0)
[2019-02-19 09:48] LABS: CHLORIDE 114 mEq/L (98-107)
[2019-02-19 10:13] LABS: T4 FREE 1.11 ng/dL (0.76-1.46)
[2019-02-19] MEDS: ASPIRIN 325MG TABLET PO SCH (10:15)
[2019-02-19] MEDS: SERTRALINE HCL 25MG TABLET PO SCH (10:15)
[2019-02-19 10:16] LABS: PLATELET ESTIMATE NORMAL
[2019-02-19] MEDS: RISPERIDONE 0.25MG TABLET PO SCH ×2 (10:16→20:12)
[2019-02-19] MEDS: MIDODRINE HCL 5MG TABLET PO SCH ×3 (10:16→17:00)
[2019-02-19] MEDS: ASCORBIC ACID 500 MG TABLET PO SCH ×2 (10:20→20:12)
[2019-02-19] MEDS: LACTULOSE 20G/30ML UDC PO SCH ×3 (12:37→22:00)
[2019-02-19] MEDS: FAMOTIDINE 20MG TABLET PO SCH (20:12)
[2019-02-20] VITALS (10 sets, daily range): BP systolic 94–145; BP diastolic 49–71
[2019-02-20] MEDS: DEXTROSE 5% WATER 1,000 ML IV SCH ×2 (01:12→12:53)
[2019-02-20 06:22] LABS: MEAN CORPUSCULAR HEMOGLOBIN 28.3 pg (28.0-32.0); MEAN CORPUSCULAR VOLUME 86.7 fL (80.0-94.0); MEAN PLATELET VOLUME 8.9 fl (7.4-10.4); PLATELET 151 x1000/uL (130-400); RED BLOOD CELL COUNT 2.34 mill/uL (4.7-6.1); RED CELL DISTRIBUTION WIDTH 18.6 % (11.6-14.6)
[2019-02-20 06:29] LABS: HEMATOCRIT. 20.3 % (42.0-52.0); HEMOGLOBIN. 6.6 g/dL (14.0-18.0)
[2019-02-20 06:33] LABS: CHLORIDE 113 mEq/L (98-107)
[2019-02-20] MEDS: ASCORBIC ACID 500 MG TABLET PO SCH ×2 (08:57→21:43)
[2019-02-20] MEDS: ASPIRIN 325MG TABLET PO SCH (08:58)
[2019-02-20] MEDS: SERTRALINE HCL 25MG TABLET PO SCH (08:58)
[2019-02-20] MEDS: RISPERIDONE 0.25MG TABLET PO SCH ×2 (08:58→21:46)
[2019-02-20 09:43] LABS: NUCLEATED RED BLOOD CELLS 1 /100 WBC
[2019-02-20 09:44] LABS: PLATELET ESTIMATE NORMAL
[2019-02-20] MEDS: ACETAMINOPHEN 325MG TABLET PO PRN ×2 (10:00→21:43)
[2019-02-20] MEDS: MIDODRINE HCL 5MG TABLET PO SCH ×2 (12:52→18:35)
[2019-02-20 13:38] LABS: HEMATOCRIT 22.9 % (42.0-52.0); HEMOGLOBIN 7.5 g/dL (14.0-18.0)
[2019-02-20] MEDS: HALOPERIDOL LACTATE 5MG/ML VIAL IM PRN (13:45)
[2019-02-20] MEDS: CEFEPIME 1,000 MG in DEXTROSE 5% WATER 50 ML IV SCH (17:44)
[2019-02-20] MEDS: METRONIDAZOLE 500 MG PREMIX 100 ML IV SCH (18:34)
[2019-02-20] MEDS: FAMOTIDINE 20MG TABLET PO SCH (21:43)
[2019-02-21] VITALS (10 sets, daily range): BP systolic 103–131; BP diastolic 59–72
[2019-02-21] MEDS: METRONIDAZOLE 500 MG PREMIX 100 ML IV SCH ×3 (00:22→18:41)
[2019-02-21] MEDS: DEXTROSE 5% WATER 1,000 ML IV SCH ×2 (06:23→18:42)
[2019-02-21] MEDS: CEFEPIME 1,000 MG in DEXTROSE 5% WATER 50 ML IV SCH ×2 (06:40→17:36)
[2019-02-21 06:48] LABS: CHLORIDE 114 mEq/L (98-107)
[2019-02-21 06:54] LABS: BASOPHILS % 0.3 % (0.0-2.0); EOSINOPHILS % 1.7 % (0.0-5.0); LYMPHOCYTES % 8.3 % (20.0-50.0); MEAN CORPUSCULAR HEMOGLOBIN 28.7 pg (28.0-32.0); MEAN CORPUSCULAR VOLUME 86.7 fL (80.0-94.0); MEAN PLATELET VOLUME 9.2 fl (7.4-10.4); MONOCYTES % 5.6 % (2.0-8.0); NEUTROPHILS % 84.1 % (40.0-76.0); PLATELET 146 x1000/uL (130-400); RED BLOOD CELL COUNT 2.37 mill/uL (4.7-6.1)
[2019-02-21 07:20] LABS: HEMATOCRIT. 20.6 % (42.0-52.0); HEMOGLOBIN. 6.8 g/dL (14.0-18.0)
[2019-02-21 08:58] LABS: HEMOGLOBIN 6.8 g/dL (14.0-18.0)
[2019-02-21] MEDS: RISPERIDONE 0.25MG TABLET PO SCH ×2 (09:33→21:40)
[2019-02-21] MEDS: ASPIRIN 325MG TABLET PO SCH (09:33)
[2019-02-21] MEDS: SERTRALINE HCL 25MG TABLET PO SCH (09:33)
[2019-02-21] MEDS: ASCORBIC ACID 500 MG TABLET PO SCH ×2 (09:34→21:40)
[2019-02-21] MEDS: MIDODRINE HCL 5MG TABLET PO SCH ×3 (09:34→17:36)
[2019-02-21 19:33] LABS: HEMATOCRIT 22.4 % (42.0-52.0); HEMOGLOBIN 7.4 g/dL (14.0-18.0); MEAN CORPUSCULAR HEMOGLOBIN 28.6 pg (28.0-32.0); MEAN CORPUSCULAR VOLUME 86.3 fL (80.0-94.0); PLATELET 141 x1000/uL (130-400); RED BLOOD CELL COUNT 2.59 mill/uL (4.7-6.1); RED CELL DISTRIBUTION WIDTH 17.1 % (11.6-14.6)
[2019-02-21] MEDS: FAMOTIDINE 20MG TABLET PO SCH (21:40)
[2019-02-22] VITALS: BP 100/59
[2019-02-22] MEDS: METRONIDAZOLE 500 MG PREMIX 100 ML IV SCH ×3 (00:30→17:20)
[2019-02-22] MEDS: DEXTROSE 5% WATER 1,000 ML IV SCH ×2 (00:30→16:27)
[2019-02-22] MEDS: CEFEPIME 1,000 MG in DEXTROSE 5% WATER 50 ML IV SCH ×2 (03:29→16:27)
[2019-02-22 04:00] VITALS: BP 98/50
[2019-02-22 06:46] LABS: CHLORIDE 115 mEq/L (98-107)
[2019-02-22 06:53] LABS: PHOSPHORUS 4.8 mg/dL (2.5-4.9)
[2019-02-22 07:48] LABS: BASOPHILS % 0.4 % (0.0-2.0); EOSINOPHILS % 1.7 % (0.0-5.0); HEMATOCRIT. 21.4 % (42.0-52.0); LYMPHOCYTES % 10.4 % (20.0-50.0); MEAN CORPUSCULAR HEMOGLOBIN 28.5 pg (28.0-32.0); MEAN CORPUSCULAR VOLUME 87.6 fL (80.0-94.0); MEAN PLATELET VOLUME 9.3 fl (7.4-10.4); MONOCYTES % 5.6 % (2.0-8.0); NEUTROPHILS % 81.9 % (40.0-76.0); PLATELET 143 x1000/uL (130-400); RED BLOOD CELL COUNT 2.45 mill/uL (4.7-6.1)
[2019-02-22 08:00] VITALS: BP 114/65
[2019-02-22] MEDS: ASPIRIN 325MG TABLET PO SCH (10:05)
[2019-02-22] MEDS: RISPERIDONE 0.25MG TABLET PO SCH ×2 (10:06→21:35)
[2019-02-22] MEDS: SERTRALINE HCL 25MG TABLET PO SCH (10:06)
[2019-02-22] MEDS: MIDODRINE HCL 5MG TABLET PO SCH ×3 (10:06→16:45)
[2019-02-22 12:00] VITALS: BP 113/64
[2019-02-22] MEDS: HALOPERIDOL LACTATE 5MG/ML VIAL IM PRN (12:10)
[2019-02-22 16:00] VITALS: BP 135/67
[2019-02-22 19:47] VITALS: BP 114/61
[2019-02-23] VITALS (9 sets, daily range): BP systolic 91–118; BP diastolic 56–67
[2019-02-23] MEDS: METRONIDAZOLE 500 MG PREMIX 100 ML IV SCH ×3 (00:25→20:40)
[2019-02-23] MEDS: DEXTROSE 5% WATER 1,000 ML IV SCH (04:14)
[2019-02-23] MEDS: CEFEPIME 1,000 MG in DEXTROSE 5% WATER 50 ML IV SCH (04:14)
[2019-02-23 06:29] LABS: BASOPHILS % 0.2 % (0.0-2.0); EOSINOPHILS % 1.8 % (0.0-5.0); LYMPHOCYTES % 8.7 % (20.0-50.0); MEAN CORPUSCULAR HEMOGLOBIN 29.1 pg (28.0-32.0); MEAN CORPUSCULAR VOLUME 89.1 fL (80.0-94.0); MEAN PLATELET VOLUME 9.1 fl (7.4-10.4); MONOCYTES % 6.4 % (2.0-8.0); NEUTROPHILS % 82.9 % (40.0-76.0); PLATELET 141 x1000/uL (130-400); RED BLOOD CELL COUNT 2.04 mill/uL (4.7-6.1); RED CELL DISTRIBUTION WIDTH 17.6 % (11.6-14.6)
[2019-02-23 06:39] LABS: HEMATOCRIT. 18.2 % (42.0-52.0); HEMOGLOBIN. 5.9 g/dL (14.0-18.0)
[2019-02-23 07:52] LABS: HEPATITIS B SURFACE ANTIGEN NEGATIVE
[2019-02-23] MEDS: RISPERIDONE 0.25MG TABLET PO SCH ×2 (08:31→20:39)
[2019-02-23] MEDS: SERTRALINE HCL 25MG TABLET PO SCH (08:31)
[2019-02-23] MEDS: MIDODRINE HCL 5MG TABLET PO SCH ×3 (08:31→18:23)
[2019-02-23 08:59] LABS: CHLORIDE 113 mEq/L (98-107)
[2019-02-23 09:12] LABS: PHOSPHORUS 4.2 mg/dL (2.5-4.9)
[2019-02-24] VITALS: BP 112/57
[2019-02-24] MEDS: METRONIDAZOLE 500 MG PREMIX 100 ML IV SCH ×2 (02:25→08:47)
[2019-02-24] MEDS: CEFEPIME 1,000 MG in DEXTROSE 5% WATER 50 ML IV SCH (03:39)
[2019-02-24] MEDS: DEXTROSE 5% WATER 1,000 ML IV SCH (03:50)
[2019-02-24 04:00] VITALS: BP 115/67
[2019-02-24 06:45] LABS: BASOPHILS % 0.4 % (0.0-2.0); EOSINOPHILS % 1.9 % (0.0-5.0); LYMPHOCYTES % 10.2 % (20.0-50.0); MEAN CORPUSCULAR HEMOGLOBIN 29.6 pg (28.0-32.0); MEAN CORPUSCULAR VOLUME 89.6 fL (80.0-94.0); MEAN PLATELET VOLUME 9.2 fl (7.4-10.4); MONOCYTES % 7.2 % (2.0-8.0); NEUTROPHILS % 80.3 % (40.0-76.0); PLATELET 138 x1000/uL (130-400); RED BLOOD CELL COUNT 2.02 mill/uL (4.7-6.1); RED CELL DISTRIBUTION WIDTH 16.5 % (11.6-14.6)
[2019-02-24 07:40] LABS: CHLORIDE 117 mEq/L (98-107)
[2019-02-24 07:55] LABS: HAPTOGLOBIN 196 mg/dL (30-200)
[2019-02-24 08:00] VITALS: BP 102/62
[2019-02-24 08:22] LABS: HEMATOCRIT. 18.1 % (42.0-52.0)
[2019-02-24] MEDS: RISPERIDONE 0.25MG TABLET PO SCH ×2 (08:47→21:34)
[2019-02-24] MEDS: MIDODRINE HCL 5MG TABLET PO SCH (08:47)
[2019-02-24] MEDS: SERTRALINE HCL 25MG TABLET PO SCH (08:49)
[2019-02-24] MEDS ORDERED: SCOPOLAMINE HYDROBROMIDE PATCH 72HR TD SCH (10:00)
[2019-02-24] MEDS ORDERED: ACETAMINOPHEN 325MG TABLET PO PRN (10:00)
[2019-02-24] MEDS ORDERED: MORPHINE SULFATE 250 MG in DEXT 5% WATER 240 ML IV PRN (10:00)
[2019-02-24] MEDS ORDERED: MORPHINE SULFATE 250 MG in DEXT 5% WATER 240 ML IV SCH (10:00)
[2019-02-24 12:00] VITALS: BP 119/65
[2019-02-24 16:00] VITALS: BP 90/55
[2019-02-24 20:00] VITALS: BP 90/49
[2019-02-25] VITALS: BP 121/52
[2019-02-25 04:00] VITALS: BP 101/52
[2019-02-25 08:00] VITALS: BP 80/40
[2019-02-25] MEDS: RISPERIDONE 0.25MG TABLET PO SCH (08:52)
[2019-02-25] MEDS: SERTRALINE HCL 25MG TABLET PO SCH (08:52)
[2019-02-25 09:09] LABS: IMMUNOGLOBULIN A 100 mg/dL (61-437); IMMUNOGLOBULIN G 1072 mg/dL (700-1600); IMMUNOGLOBULIN M 38 mg/dL (15-143)
== END 2019-02-25 11:05 | disposition expired | DRG 871 ==
LOC: ER 13:06 → MICUSO 15:04 → EDBEDREQSVC 15:22 → EDBEDREQ 15:22 → SUPCPDRO 15:28 → ENRESERV 15:39 → 8WST 02-07 12:19
PROVIDERS: ADMIT Internal Medicine; ATTEND Internal Medicine
PROC: 02HV33Z Insertion of Infusion Device into Superior Vena Cava, Percutaneous Approach (ICD-10-PCS; 2019-01-25)
PROC: B548ZZA Ultrasonography of Superior Vena Cava, Guidance (ICD-10-PCS; 2019-01-25)
PROC: 30233N1 Transfusion of Nonautologous Red Blood Cells into Peripheral Vein, Percutaneous Approach (ICD-10-PCS; 2019-01-28)
PROC: 0DH63UZ Insertion of Feeding Device into Stomach, Percutaneous Approach (ICD-10-PCS; principal; 2019-02-04)
DX: A41.1 Sepsis due to other specified staphylococcus (principal); E43 Unspecified severe protein-calorie malnutrition; I21.4 Non-ST elevation (NSTEMI) myocardial infarction; K72.00 Acute and subacute hepatic failure without coma; G92 Toxic encephalopathy; J96.00 Acute respiratory failure, unspecified whether with hypoxia or hypercapnia; N17.0 Acute kidney failure with tubular necrosis; R65.21 Severe sepsis with septic shock; J69.0 Pneumonitis due to inhalation of food and vomit; E87.2 Acidosis; N39.0 Urinary tract infection, site not specified; E87.0 Hyperosmolality and hypernatremia; Z66 Do not resuscitate; A52.9 Late syphilis, unspecified; E86.0 Dehydration; E78.5 Hyperlipidemia, unspecified; N18.3 Chronic kidney disease, stage 3 (moderate); B96.20 Unspecified Escherichia coli [E. coli] as the cause of diseases classified elsewhere; E11.22 Type 2 diabetes mellitus with diabetic chronic kidney disease; E83.39 Other disorders of phosphorus metabolism; F02.80 Dementia in other diseases classified elsewhere, unspecified severity, without behavioral disturbance, psychotic disturbance, mood disturbance, and anxiety; H44.521 Atrophy of globe, right eye; H54.8 Legal blindness, as defined in USA; H91.90 Unspecified hearing loss, unspecified ear; I12.9 Hypertensive chronic kidney disease with stage 1 through stage 4 chronic kidney disease, or unspecified chronic kidney disease; I25.10 Atherosclerotic heart disease of native coronary artery without angina pectoris; J44.9 Chronic obstructive pulmonary disease, unspecified; R13.10 Dysphagia, unspecified; Z16.12 Extended spectrum beta lactamase (ESBL) resistance; Z51.5 Encounter for palliative care; I71.4 Abdominal aortic aneurysm, without rupture; D64.9 Anemia, unspecified; M50.30 Other cervical disc degeneration, unspecified cervical region; F99 Mental disorder, not otherwise specified; Z85.46 Personal history of malignant neoplasm of prostate; Z86.73 Personal history of transient ischemic attack (TIA), and cerebral infarction without residual deficits; Z95.1 Presence of aortocoronary bypass graft; Z98.84 Bariatric surgery status; Z79.82 Long term (current) use of aspirin; Z79.899 Other long term (current) drug therapy; Z68.27 Body mass index [BMI] 27.0-27.9, adult
CPT/HCPCS: 36415; 36569; 36600; 71045; 76770; 76937; 80048; 80061; 80076; 80202; 80305; 80307; 80320; 80329; 82024; 82140; 82248; 82270; 82375; 82436; 82533; 82570; 82607; 82728; 82746; 82784; 82805; 82945; 83010; 83036; 83540; 83550; 83605; 83615; 83735; 83880; 83935; 84100; 84133; 84134; 84145; 84300; 84439; 84443; 84484; 84540; 84560; 85014; 85018; 85027; 85049; 85384; 86334; 86803; 86850; 86870; 86880; 86900; 86920; 87077; 87186; 87340; 90686; 92610; 93005; 93306; 93970; 94640; 94667; 96365; 96366; 96368; 97162; 99291; C1725; C1893; J0692; J1630; J1940; J2060; J2185; J2250; J2270; J2274; J2310; J2405; J2543; J3010; J3370; J3490; J7030; J7040; J7042; J7050; J7060; J7070; J7608; J7620; P9016; P9021; P9047; G0480